=== PATIENT | female | born 1940 | race Caucasian/White ===

== ENCOUNTER → 2017-04-27 | Outpatient (CLI) | payer MEDICARE, OTHER ==
[~2017-04-27] MED LIST: ACIP20TA19 PO; ADVA250A INH; ASPI81 PO; B-1210005 PO; CALC-197 PO; CARD120T4 PO; COZA100T PO; DOCU100T9 PO; MAGN400C2 PO; META800 PO; REST0.05 OU; TAB-TAB PO; WAL-10TA2 PO; ZAFI20TA OR
--- NOTE | 2017-04-29 10:15 | RSPPFT ---
DATE OF PROCEDURE: 04/27/17 COMMENTS: VOLUMES DYNAMIC: FVC and FEV1 low normal. STATIC: TLC, RV and FRC normal. FLOWS: FEV1%l mildly reduced; FEF 25-75 moderately reduced. DIFFUSION: Normal. FLOW VOLUME LOOP: Mild terminal airflow obstruction. IMPRESSION: Terminal airflow obstruction with no significant change post-bronchodilator and no hyperinflation. Airways resistance is increased. Diffusion is normal.
== END ==
LOC: HRSP 07:17
PROVIDERS: ATTEND Internal Medicine
DX: J45.909 Unspecified asthma, uncomplicated (principal); R06.02 Shortness of breath
CPT/HCPCS: 94060; 94620; 94726; 94729; 95012

== ENCOUNTER 2017-06-23 18:36 | Inpatient (IN) | payer MEDICARE, OTHER ==
[~2017-06-23] VITALS: Ht 162.6 cm; Wt 72.0 kg
[2017-06-23 18:59] VITALS: BP 165/77; PULSE 91; RESP 18; TEMP 98.2; O2SAT 96
[2017-06-23] MEDS ORDERED: SODIUM CHLORIDE 0.9% FLUSH 10 ML FLUSH IVF PRN (19:00)
[2017-06-23] MEDS ORDERED: MORPHINE SULFATE 4 MG/ML INJ IV ONE (19:00)
--- NOTE | 2017-06-23 19:25 | PD ---
HPI Chief Complaint: Fall Time Seen by Provider: 18:57 Travel History International Travel<30 days: No Contact w/Intl Traveler<30days: No Traveled to known affect area: No History of Present Illness HPI 77-year-old female was brought to the emergency room by EMS on a board. Patient was going to get her mail when she tripped and fell and landed on the left side of her body. She was complaining of left shoulder and left hip pain. En route she also complained of her neck pain. She never lost consciousness and no head injury as per her. Patient takes 1 baby aspirin every day. She has been unable to straighten her left hip due to the pain mostly. She is awake and answering questions appropriately. She received 6 mg of morphine en route by EMS. FORMERLY [facility] Past Medical History Narrative Medical List of her past medical, surgical, social and family history was reviewed from the nursing note. Arthritis: Yes Asthma: Yes Autoimmune Disease: No Blood Disorders: No Heart Rhythm Problems: Yes Cancer: No High Cholesterol: No Chest Pain: No Congestive Heart Failure: No COPD: Yes Cerebrovascular Accident: Yes Diabetes: No Diminished Hearing: No Endocrine: Yes GERD: No Glaucoma: No Genitourinary: No Headaches: Yes Hepatitis: Yes Hiatal Hernia: No Hypertension: Yes Immune Disorder: No Kidney Stones: No Musculoskeletal: Yes Neurologic: Yes Psychiatric: No Myocardial Infarction: No Renal Failure: No Seizures: No Sleep Apnea: No Thyroid Disease: Yes Ulcer: Yes Past Surgical History Abdominal Surgery: Yes (ARACELIS-1975, TONSILS & ADNOIDS - 1949, APPENDECTOMY - 1953) AICD: No Appendectomy: Yes Cholecystectomy: Yes Endocrine Surgery: Yes Genitourinary Surgery: No Gynecologic Surgery: Yes (CYSTOCELE SURGERY) Hysterectomy: Yes Pacemaker: No Tonsillectomy: Yes Other Surgery: Yes (SINUS SURGERY 1988 AND 1990) Social History Alcohol Use: No Tobacco Use: No Substance Use: No Allergies-Medications (Allergen,Severity, Reaction): Coded Allergies: Sulfa (Sulfonamide Antibiotics) (Unverified Allergy, Severe, HIVES, ) celecoxib (Unverified Allergy, Severe, Rash, 05/26/17) naproxen (Unverified Allergy, Severe, Tachycardia, 05/26/17) amoxicillin (Unverified Allergy, Mild, Rash, 05/26/17) clavulanic acid (Unverified Allergy, Mild, Rash, 06/23/17) flunisolide (Unverified Allergy, Mild, Hallucinations, 06/23/17) hydrochlorothiazide (Unverified Allergy, Mild, Rash, 06/23/17) ibuprofen (Unverified Allergy, Mild, Tachycardia, 06/23/17) lisinopril (Unverified Allergy, Mild, Edema, 06/23/17) rofecoxib (Unverified Allergy, Mild, Tachycardia, 06/23/17) tramadol (Unverified Allergy, Mild, Hallucinations, 06/23/17) NSAIDS (Non-Steroidal Anti-Inflamma (Verified Allergy, Unknown, GI, ) metoprolol (Verified Allergy, Unknown, UNKNOWN, 06/23/17) midazolam (Verified Allergy, Unknown, 06/23/17) codeine (Unverified Adverse Reaction, Mild, NAUSEA/VOMITING, 06/23/17) Uncoded Allergies: ARTHROTEC (Allergy, Severe, Rash, 11/05/12) NASALIDE (Allergy, Unknown, 06/23/17) Comments List of allergies reviewed from the nursing note. Reported Meds & Prescriptions Reported Meds & Active Scripts Active Reported Magnesium Oxide 400 Mg Tab 400 Mg PO DIRECTED Aciphex (Rabeprazole Sodium) 20 Mg Tab 20 Mg PO DAILY Diltiazem (Diltiazem HCl) 120 Mg Tab 120 Mg PO DAILY Losartan (Losartan Potassium) 50 Mg Tab 50 Mg PO BID Aspirin EC (Aspirin) 81 Mg Tabdr 81 Mg PO DAILY Narrative Medication List of her home medications reviewed from the nursing note. Review of Systems Except as stated in HPI: all other systems reviewed are Neg Physical Exam Narrative GENERAL: Awake, alert, elderly, moderate distress SKIN: Focused skin assessment warm/dry. HEAD: Atraumatic. Normocephalic. EYES: Pupils equal and round. No scleral icterus. No injection or drainage. ENT: No nasal bleeding or discharge. Mucous membranes pink and moist. NECK: Trachea midline. No JVD. CARDIOVASCULAR: Regular rate and rhythm. No murmur appreciated. RESPIRATORY: No accessory muscle use. Clear to auscultation. Breath sounds equal bilaterally. GASTROINTESTINAL: Abdomen soft, non-tender, nondistended. Hepatic and splenic margins not palpable. MUSCULOSKELETAL: Left hip is internally rotated, flexed and decreased range of motion due to the pain. Left shoulder is deformed and decreased range of motion due to the pain. No clubbing. No cyanosis. No edema. Distal neurovascular chills and tach. NEUROLOGICAL: Awake and alert. No obvious cranial nerve deficits. Motor grossly within normal limits. Normal speech. PSYCHIATRIC: Appropriate mood and affect; insight and judgment normal. Data Data Orders Orders Basic Metabolic Panel (Bmp) (06/23/17 18:57) Complete Blood Count With Diff (06/23/17 18:57) Prothrombin Time / Inr (Pt) (06/23/17 18:57) Act Partial Throm Time (Ptt) (06/23/17 18:57) Type And Screen (06/23/17 18:57) Chest, Single Ap (06/23/17 18:57) Ct Brain W/O Iv Contrast(Rout) (06/23/17 18:57) Ct Cerv Spine W/O Contrast (06/23/17 18:57) Iv Access Insert/Monitor (06/23/17 18:57) Ecg Monitoring (06/23/17 18:57) Oximetry (06/23/17 18:57) Oxygen Administration (06/23/17 18:57) Morphine Inj (Morphine Inj) (06/23/17 19:00) Sodium Chloride 0.9% Flush (Ns Flush) (06/23/17 19:00) Shoulder, Complete (>2vws) (06/23/17 ) Elbow, Complete (4 Vws) (06/23/17 ) Hip, Uni(Ap&Lat) W Ap Pelvis (06/23/17 ) Urinary Catheter Insert/Apply (06/23/17 19:00) Wrist, Complete ([id number]) (06/23/17 ) Hand, Complete ([id number]) (06/23/17 ) Splint Or Brace Apply/Monitor (06/23/17 22:06) Morphine Inj (Morphine Inj) (06/23/17 22:45) Admit Order (Ed Use Only) (06/23/17 ) Labs Laboratory Tests Test 06/23/17 19:18 White Blood Count 12.6 TH/MM3 Red Blood Count 4.51 MIL/MM3 Hemoglobin 13.1 GM/DL Hematocrit 39.2 % Mean Corpuscular Volume 87.0 FL Mean Corpuscular Hemoglobin 29.1 PG Mean Corpuscular Hemoglobin Concent 33.5 % Red Cell Distribution Width 13.5 % Platelet Count 314 TH/MM3 Mean Platelet Volume 7.1 FL Neutrophils (%) (Auto) 77.7 % Lymphocytes (%) (Auto) 14.1 % Monocytes (%) (Auto) 5.1 % Eosinophils (%) (Auto) 2.9 % Basophils (%) (Auto) 0.2 % Neutrophils # (Auto) 9.8 TH/MM3 Lymphocytes # (Auto) 1.8 TH/MM3 Monocytes # (Auto) 0.6 TH/MM3 Eosinophils # (Auto) 0.4 TH/MM3 Basophils # (Auto) 0.0 TH/MM3 CBC Comment DIFF FINAL Differential Comment Prothrombin Time 10.9 SEC Prothromb Time International Ratio 1.0 RATIO Activated Partial Thromboplast Time 28.0 SEC Blood Urea Nitrogen 16 MG/DL Creatinine 0.52 MG/DL Random Glucose 97 MG/DL Calcium Level 8.8 MG/DL Sodium Level 133 MEQ/L Potassium Level 3.4 MEQ/L Chloride Level 99 MEQ/L Carbon Dioxide Level 24.6 MEQ/L Anion Gap 9 MEQ/L Estimat Glomerular Filtration Rate 114 ML/MIN [facility] Medical Decision Making Medical Screen Exam Complete: Yes Emergency Medical Condition: Yes Medical Record Reviewed: Yes Differential Diagnosis Shoulder fracture, shoulder dislocation, hip fracture, hip dislocation, cervical fracture Narrative Course 7:24 PM patient was given another dose of IV morphine. X-ray of the shoulder and hip was ordered. CT scan of the head and neck was ordered. Case was signed over to the oncoming ER physician. Procedures EKG Prior to Arrival: No Scripts Sennosides-Docusate Sodium (Azul-Colace) 8.6-50 Mg Tab 2 TAB PO BID for Constipation, #60 TAB 0 Refills Prov: Netta Parikh MD 06/25/17 Morphine ER (Morphine ER) 15 Mg Tab 15 MG PO DAILY for Pain Management, #15 TAB 0 Refills Prov: Netta Parikh MD 06/25/17 Doug Grullon MD Jun 23, 2017 19:25
--- NOTE | 2017-06-23 20:20 | RADRPT ---
EXAM DATE/TIME: 06/23/2017 19:51 [facility] COMPARISON: No previous studies available for comparison. INDICATIONS : Pain post fall. MEDICAL HISTORY : None. SURGICAL HISTORY : None. ENCOUNTER: Initial ACUITY: 1 day PAIN SCORE: 2/10 LOCATION: Left upper chest FINDINGS: A single view of the chest demonstrates the lungs to be symmetrically aerated without evidence of mas s, infiltrate or effusion. The cardiomediastinal contours are unremarkable. Osseous structures are intact. CONCLUSION: No evidence of acute cardiopulmonary disease. Calvin Nash MD on June 23, 2017 at 20:18 Board Certified Radiologist. This report was verified electronically.
--- NOTE | 2017-06-23 20:21 | RADRPT ---
EXAM DATE/TIME: 06/23/2017 19:51 [facility] COMPARISON: No previous studies available for comparison. INDICATIONS : Left hip pain post fall. MEDICAL HISTORY : None. SURGICAL HISTORY : None. ENCOUNTER: Initial ACUITY: 1 day PAIN SCORE: 9/10 LOCATION: Left hip. FINDINGS: Mildly displaced fracture seen of the left superior pubic ramus. It may be acute. I don't see any oth er fractures. No subluxation of either hip. CONCLUSION: Mildly displaced left superior pubic ramus fracture. Calvin Nash MD on June 23, 2017 at 20:19 Board Certified Radiologist. This report was verified electronically.
--- NOTE | 2017-06-23 20:27 | RADRPT ---
EXAM DATE/TIME: 06/23/2017 19:56 [facility] COMPARISON: No previous studies available for comparison. INDICATIONS : Left shoulder pain post fall. MEDICAL HISTORY : None. SURGICAL HISTORY : None. ENCOUNTER: Initial ACUITY: 1 day PAIN SCORE: 8/10 LOCATION: Left shoulder. FINDINGS: No fracture or subluxation seen of the left shoulder. There is mild to moderate acromioclavicular and glenohumeral joint osteoarthritis. Chronic impingement type changes are seen of the greater tuberosi ty of the humeral head. CONCLUSION: Chronic findings. No fracture or subluxation of the left shoulder. Calvin Nash MD on June 23, 2017 at 20:25 Board Certified Radiologist. This report was verified electronically.
--- NOTE | 2017-06-23 20:30 | RADRPT ---
EXAM DATE/TIME: 06/23/2017 20:00 [facility] COMPARISON: No previous studies available for comparison. INDICATIONS : Left elbow pain post fall. MEDICAL HISTORY : None. SURGICAL HISTORY : None. ENCOUNTER: Initial ACUITY: 1 day PAIN SCORE: 4/10 LOCATION: Left elbow. FINDINGS: Multiple view examination of the left elbow demonstrates no soft tissue swelling, joint effusion, or fracture. The osseous structures are in normal alignment. Bony mineralization is normal. CONCLUSION: No fracture, subluxation or joint effusion of the left elbow. Calvin Nash MD on June 23, 2017 at 20:28 Board Certified Radiologist. This report was verified electronically.
--- NOTE | 2017-06-23 20:31 | RADRPT ---
EXAM DATE/TIME: 06/23/2017 20:06 [facility] COMPARISON: No previous studies available for comparison. INDICATIONS : Trauma, fall and hit back of head. RADIATION DOSE: 34.54 CTDIvol (mGy) MEDICAL HISTORY : Hypertension. Chronic obstructive pulmonary disease. Asthma. SURGICAL HISTORY : Hysterectomy. ENCOUNTER: Initial ACUITY: 1 day PAIN SCALE: 6/10 LOCATION: cranial TECHNIQUE: Multiple contiguous axial images were obtained of the head. Using automated exposure control and adj ustment of the mA and/or kV according to patient size, radiation dose was kept as low as reasonably a chievable to obtain optimal diagnostic quality images. DICOM format image data is available electro nically for review and comparison. FINDINGS: CEREBRUM: The ventricles are normal for age. No evidence of midline shift, mass lesion, hemorrhage or acute in farction. No extra-axial fluid collections are seen. POSTERIOR FOSSA: The cerebellum and brainstem are intact. The 4th ventricle is midline. The cerebellopontine angle i s unremarkable. EXTRACRANIAL: Mucoperiosteal thickening seen of the visualized ethmoid and maxillary air cells. There appears to be en previous bilateral nasal antral window formation. SKULL: The calvaria is intact. No evidence of skull fracture. CONCLUSION: No bleed or other acute intracranial abnormality. Chronic sinusitis. Apparent previous sinus surgery. Calvin Nash MD on June 23, 2017 at 20:29 Board Certified Radiologist. This report was verified electronically.
[2017-06-23 20:32] LABS: AUTOMATED NEUTROPHIL # 9.8 TH/MM3 (1.8-7.7); BASOPHIL % 0.2 % (0.0-2.0); EOSINOPHIL # 0.4 TH/MM3 (0-0.4); EOSINOPHIL % 2.9 % (0.0-4.0); HEMATOCRIT 39.2 % (35.0-46.0); HEMO FLAGS DIFF FINAL; LYMPH % 14.1 % (9.0-44.0); LYMPHOCYTE # 1.8 TH/MM3 (1.0-4.8); MEAN CORPUSCULAR HEMOGLOBIN 29.1 PG (27.0-34.0); MEAN CORPUSCULAR HGB CONC 33.5 % (32.0-36.0); MONO % 5.1 % (0.0-8.0); NEUT % 77.7 % (16.0-70.0); PLATELET COUNT 314 TH/MM3 (150-450); RED BLOOD COUNT 4.51 MIL/MM3 (4.00-5.30); RED CELL DISTRIBUTION WIDTH 13.5 % (11.6-17.2); WHITE BLOOD COUNT 12.6 TH/MM3 (4.0-11.0)
[2017-06-23 20:42] LABS: PROTHROMBIN TIME - PATIENT 10.9 SEC (9.8-11.6)
--- NOTE | 2017-06-23 20:42 | RADRPT ---
EXAM DATE/TIME: 06/23/2017 20:06 [facility] COMPARISON: No previous studies available for comparison. INDICATIONS : Trauma, fall and hit back of head. RADIATION DOSE: 20.58 CTDIvol (mGy) MEDICAL HISTORY : Hypertension. Chronic obstructive pulmonary disease. Asthma. SURGICAL HISTORY : Hysterectomy. ENCOUNTER: Initial ACUITY: 1 day PAIN SCALE: 2/10 LOCATION: neck TECHNIQUE: Volumetric scanning of the cervical spine was performed. Multiplanar reconstructions in the sagittal, coronal and oblique axial planes were performed. Using automated exposure control and adjustment o f the mA and/or kV according to patient size, radiation dose was kept as low as reasonably achievable to obtain optimal diagnostic quality images. DICOM format image data is available electronically f or review and comparison. FINDINGS: No fracture or acute-appearing malalignment seen in the cervical spine. There are few millimeters of degenerative appearing anterolisthesis at C3/C4. Mild to moderate disc s pace narrowing seen at this level. There is moderate to severe disc space narrowing with uncovertebra l and facet osteoarthritis at C4/C5, C5/C6 and C6/C7. No acute disc herniation demonstrated. Perivertebral soft tissues are within normal limits. CONCLUSION: Intact cervical spine. Multilevel degenerative changes as above. Calvin Nash MD on June 23, 2017 at 20:40 Board Certified Radiologist. This report was verified electronically.
[2017-06-23 20:49] LABS: BICARBONATE 24.6 MEQ/L (21.0-32.0); POTASSIUM 3.4 MEQ/L (3.5-5.1)
[2017-06-23] MEDS ORDERED: DILT120T PO (21:52)
[2017-06-23] MEDS ORDERED: ASPI81TA11 PO (21:52)
[2017-06-23] MEDS ORDERED: ACIP20TA6 PO (21:52)
[2017-06-23] MEDS ORDERED: LOSA50TA PO (21:52)
[2017-06-23] MEDS ORDERED: MAGN400T2 PO (21:56)
--- NOTE | 2017-06-23 22:03 | RADRPT ---
EXAM DATE/TIME: 06/23/2017 21:40 [facility] COMPARISON: No previous studies available for comparison. INDICATIONS : Left wrist pain after falling today. MEDICAL HISTORY : Hypertension. Asthma. SURGICAL HISTORY : None. ENCOUNTER: Initial ACUITY: 1 day PAIN SCORE: 10/10 LOCATION: Left entire wrist. FINDINGS: Bones of the left wrist are intact and normally aligned. There is mild to moderate triscaphe and firs t carpometacarpal osteoarthritis. Radiographic appearance of the soft tissues within normal limits. CONCLUSION: No fracture or subluxation of the left wrist. [id number] radial sided degenerative changes. Calvin Nash MD on June 23, 2017 at 22:01 Board Certified Radiologist. This report was verified electronically.
--- NOTE | 2017-06-23 22:04 | RADRPT ---
EXAM DATE/TIME: 06/23/2017 21:47 [facility] COMPARISON: No previous studies available for comparison. INDICATIONS : Left hand pain after falling today. MEDICAL HISTORY : Hypertension. Asthma. SURGICAL HISTORY : None. ENCOUNTER: Initial ACUITY: 1 day PAIN SCORE: 10/10 LOCATION: Left entire wrist. FINDINGS: Three view examination of the left hand demonstrates no soft tissue swelling, dislocation, or fractur e. The carpal bones appear intact. The interphalangeal and metacarpophalangeal joints are intact. Bony mineralization is normal. CONCLUSION: Intact left hand. Calvin Nash MD on June 23, 2017 at 22:02 Board Certified Radiologist. This report was verified electronically.
--- NOTE | 2017-06-23 22:35 | PD ---
Physical Exam Narrative Patient signed out to me by Dr. Grullon. Please see her documentation for complete details. Briefly, patient is a 77-year-old female comes in after a trip and fall. She fell on her left side. She is complaining of pain to her left wrist and her left hip. Exam shows tenderness to the left scaphoid as well as the left side of the pelvis. Pulses are intact. Data Data Last Documented VS Vital Signs Date Time Temp Pulse Resp B/P (MAP) Pulse Ox O2 Delivery O2 Flow Rate FiO2 06/23/17 19:30 100 Room Air 06/23/17 18:59 98.2 91 18 165/77 (106) Orders Orders Basic Metabolic Panel (Bmp) (06/23/17 18:57) Complete Blood Count With Diff (06/23/17 18:57) Prothrombin Time / Inr (Pt) (06/23/17 18:57) Act Partial Throm Time (Ptt) (06/23/17 18:57) Type And Screen (06/23/17 18:57) Chest, Single Ap (06/23/17 18:57) Ct Brain W/O Iv Contrast(Rout) (06/23/17 18:57) Ct Cerv Spine W/O Contrast (06/23/17 18:57) Iv Access Insert/Monitor (06/23/17 18:57) Ecg Monitoring (06/23/17 18:57) Oximetry (06/23/17 18:57) Oxygen Administration (06/23/17 18:57) Morphine Inj (Morphine Inj) (06/23/17 19:00) Sodium Chloride 0.9% Flush (Ns Flush) (06/23/17 19:00) Shoulder, Complete (>2vws) (06/23/17 ) Elbow, Complete (4 Vws) (06/23/17 ) Hip, Uni(Ap&Lat) W Ap Pelvis (06/23/17 ) Urinary Catheter Insert/Apply (06/23/17 19:00) Wrist, Complete ([id number]) (06/23/17 ) Hand, Complete ([id number]) (06/23/17 ) Splint Or Brace Apply/Monitor (06/23/17 22:06) Labs Laboratory Tests Test 06/23/17 19:18 White Blood Count 12.6 TH/MM3 Red Blood Count 4.51 MIL/MM3 Hemoglobin 13.1 GM/DL Hematocrit 39.2 % Mean Corpuscular Volume 87.0 FL Mean Corpuscular Hemoglobin 29.1 PG Mean Corpuscular Hemoglobin Concent 33.5 % Red Cell Distribution Width 13.5 % Platelet Count 314 TH/MM3 Mean Platelet Volume 7.1 FL Neutrophils (%) (Auto) 77.7 % Lymphocytes (%) (Auto) 14.1 % Monocytes (%) (Auto) 5.1 % Eosinophils (%) (Auto) 2.9 % Basophils (%) (Auto) 0.2 % Neutrophils # (Auto) 9.8 TH/MM3 Lymphocytes # (Auto) 1.8 TH/MM3 Monocytes # (Auto) 0.6 TH/MM3 Eosinophils # (Auto) 0.4 TH/MM3 Basophils # (Auto) 0.0 TH/MM3 CBC Comment DIFF FINAL Differential Comment Prothrombin Time 10.9 SEC Prothromb Time International Ratio 1.0 RATIO Activated Partial Thromboplast Time 28.0 SEC Blood Urea Nitrogen 16 MG/DL Creatinine 0.52 MG/DL Random Glucose 97 MG/DL Calcium Level 8.8 MG/DL Sodium Level 133 MEQ/L Potassium Level 3.4 MEQ/L Chloride Level 99 MEQ/L Carbon Dioxide Level 24.6 MEQ/L Anion Gap 9 MEQ/L Estimat Glomerular Filtration Rate 114 ML/MIN [facility] Supervised Visit with LEONARDO: No Narrative Course X-ray of the pelvis shows a superior rami fracture. Patient is having too much pain to try and walk. CT head and C-spine show no acute abnormalities. All other x-ray show no acute abnormalities. Patient placed in Velcro wrist splint due to snuffbox tenderness. She is advised to have a repeat x-ray in 1 week. I spoke with Dr. Ibarra of orthopedics. He suggests weightbearing as tolerated. She will need pain control. He will see her in the morning. Patient given another dose of morphine. She attempted to walk, but is unable to get up. She'll be placed in observation for further management. Diagnosis Primary Impression: Pelvic fracture Qualified Codes: S32.512A - Fracture of superior rim of left pubis, initial encounter for closed fracture Admitting Information Admitting Physician Requests: Observation Condition: Stable Susi Bragg MD Jun 23, 2017 22:35
[2017-06-23] MEDS ORDERED: MORPHINE SULFATE 4 MG/ML INJ IV PUSH ONE (22:45)
[2017-06-23] MEDS ORDERED: SODIUM CHLORIDE 0.9% FLUSH 10 ML FLUSH IV FLUSH PRN (23:00)
[2017-06-23] MEDS ORDERED: NALOXONE HCL 0.4 MG/ML AMP IV PRN (23:00)
[2017-06-23] MEDS ORDERED: MORPHINE SULFATE 2 MG/ML INJ IV PUSH PRN (23:00)
[2017-06-23 23:15] VITALS: BP 104/54; PULSE 70; RESP 19; O2SAT 97
[2017-06-23 23:50] VITALS: BP 129/59; PULSE 73; RESP 18; O2SAT 96
[2017-06-24] VITALS (8 sets, daily range): BP systolic 132–175; BP diastolic 60–82; PULSE 67–77; RESP 16–18; TEMP 97.1–98.1; O2SAT 94–97
--- NOTE | 2017-06-24 08:56 | HHI.HP ---
[facility] Primary Care Physician Kimberly Arroyo MD Admission Diagnosis Pelvic fracture Diagnoses: (1) Pelvic fracture Chief Complaint: Fall, left hip and left hand/wrist pain Travel History International Travel<30 Days: No Contact w/Intl Traveler <30 Da: No Traveled to Known Affected Are: No History of Present Illness Written by Susi Costa, acting as scribe for Dr. Parikh on 06/24/17 at 08:46. Ms. Velazquez is a 77-year-old female with a known medical history of hypertension and COPD who presented to the ED status post fall at home. Patient states she was walking outside to get her mail when she slipped and lost her balance, falling on her left side. At the time patient states she "heard a crack in her hip". Patient complains of left hand/wrist pain as well as left hip pain. Denies hitting her head or loosing consciousness. She is a relatively healthy patient. Denies any recent illness including fever, chills, headache, dizziness, diplopia, cough, shortness of breath, abdominal pain, nausea, vomiting, diarrhea or dysuria. At the time of exam patient is awake, alert and oriented, following all commands. Continued complaint of left wrist/hand pain. Denies any numbness, tingling or paraesthesia in al extremities. Afebrile. VSS. Review of Systems Musculoskeletal: COMPLAINS OF: Joint pain (left wrist/hand, left hip pain) Except as stated in HPI: all other systems reviewed are Neg Past Family Social History Past Medical History Hypertension COPD Asthma GERD Past Surgical History Cholecystectomy Appendectomy Hysterectomy Reported Medications Reported Meds & Active Scripts Active Reported Magnesium Oxide 400 Mg Tab 400 Mg PO DIRECTED Aciphex (Rabeprazole Sodium) 20 Mg Tab 20 Mg PO DAILY Diltiazem (Diltiazem HCl) 120 Mg Tab 120 Mg PO DAILY Losartan (Losartan Potassium) 50 Mg Tab 50 Mg PO BID Aspirin EC (Aspirin) 81 Mg Tabdr 81 Mg PO DAILY Allergies: Coded Allergies: Sulfa (Sulfonamide Antibiotics) (Unverified Allergy, Severe, HIVES, ) celecoxib (Unverified Allergy, Severe, Rash, 05/26/17) naproxen (Unverified Allergy, Severe, Tachycardia, 05/26/17) amoxicillin (Unverified Allergy, Mild, Rash, 05/26/17) clavulanic acid (Unverified Allergy, Mild, Rash, 06/23/17) flunisolide (Unverified Allergy, Mild, Hallucinations, 06/23/17) hydrochlorothiazide (Unverified Allergy, Mild, Rash, 06/23/17) ibuprofen (Unverified Allergy, Mild, Tachycardia, 06/23/17) lisinopril (Unverified Allergy, Mild, Edema, 06/23/17) rofecoxib (Unverified Allergy, Mild, Tachycardia, 06/23/17) tramadol (Unverified Allergy, Mild, Hallucinations, 06/23/17) NSAIDS (Non-Steroidal Anti-Inflamma (Verified Allergy, Unknown, GI, ) metoprolol (Verified Allergy, Unknown, UNKNOWN, 06/23/17) midazolam (Verified Allergy, Unknown, 06/23/17) codeine (Unverified Adverse Reaction, Mild, NAUSEA/VOMITING, 06/23/17) Uncoded Allergies: ARTHROTEC (Allergy, Severe, Rash, 11/05/12) NASALIDE (Allergy, Unknown, 06/23/17) Active Ordered Medications Current Medications Medications (Trade) Dose Ordered Sig/Ingrid Route Start Time Stop Time Status Last Admin (NS Flush) 2 ml UNSCH PRN IV FLUSH 06/23/17 23:00 06/23/17 23:53 (NS Flush) 2 ml BID IV FLUSH 06/24/17 09:00 06/24/17 09:00 (Narcan Inj) 0.4 mg UNSCH PRN IV 06/23/17 23:00 (Morphine Inj) 2 mg Q3H PRN IV PUSH 06/24/17 05:15 06/24/17 16:40 (Ecotrin Ec) 81 mg DAILY PO 06/25/17 09:00 (Cozaar) 50 mg BID PO 06/24/17 21:00 (Mag-Ox) 400 mg DAILY PO 06/25/17 09:00 (Protonix) 20 mg DAILY PO 06/25/17 09:00 (Cardizem Cd) 120 mg DAILY PO 06/25/17 09:00 (Triangle 5-325 Mg) 1 tab Q4H PRN PO 06/24/17 16:30 (Triangle 10-325 Mg) 1 tab Q4H PRN PO 06/24/17 16:30 (Narcan Inj) 0.4 mg UNSCH PRN IV PUSH 06/24/17 16:30 Family History Maternal medical history significant for cardiovascular disease and colon cancer. Paternal medical history significant for lung cancer. Brother's medical history significant for colon cancer. Social History Denies any current tobacco use, alcohol use or illicit drug use. Physical Exam Vital Signs Vital Signs Date Time Temp Pulse Resp B/P (MAP) Pulse Ox O2 Delivery O2 Flow Rate FiO2 06/24/17 01:59 97.1 74 16 154/72 (99) 97 06/24/17 01:29 72 16 140/82 (101) 99 06/23/17 23:50 73 18 129/59 (82) 96 Room Air 06/23/17 23:15 70 19 104/54 (71) 97 Room Air 06/23/17 19:30 100 Room Air 06/23/17 19:10 100 Room Air 06/23/17 18:59 98.2 91 18 165/77 (106) 96 Physical Exam GENERAL: This is a well-nourished, well-developed patient, in no apparent distress. SKIN: No rashes, ecchymoses or lesions. Warm and dry. HEENT: Atraumatic. Normocephalic. Pupils equal round and reactive. Extraocular motions intact. No scleral icterus. No injection or drainage. Nose without bleeding. Airway patent. NECK: Trachea midline. No JVD. Supple. CARDIOVASCULAR: Regular rate and rhythm without murmurs, gallops, or rubs. RESPIRATORY: Clear to auscultation. Breath sounds equal bilaterally. No wheezes , rales, or rhonchi. GASTROINTESTINAL: Abdomen soft, non-tender, nondistended. No guarding. MUSCULOSKELETAL: Extremities without clubbing, cyanosis, or edema. No joint tenderness, effusion, or edema noted. Left knee abrasion. NEUROLOGICAL: Awake and alert. Cranial nerves II through XII intact. Motor and sensory grossly within normal limits. Five out of 5 muscle strength in all muscle groups. Normal speech. Laboratory Laboratory Tests Test 06/23/17 19:18 White Blood Count 12.6 Red Blood Count 4.51 Hemoglobin 13.1 Hematocrit 39.2 Mean Corpuscular Volume 87.0 Mean Corpuscular Hemoglobin 29.1 Mean Corpuscular Hemoglobin Concent 33.5 Red Cell Distribution Width 13.5 Platelet Count 314 Mean Platelet Volume 7.1 Neutrophils (%) (Auto) 77.7 Lymphocytes (%) (Auto) 14.1 Monocytes (%) (Auto) 5.1 Eosinophils (%) (Auto) 2.9 Basophils (%) (Auto) 0.2 Neutrophils # (Auto) 9.8 Lymphocytes # (Auto) 1.8 Monocytes # (Auto) 0.6 Eosinophils # (Auto) 0.4 Basophils # (Auto) 0.0 CBC Comment DIFF FINAL Differential Comment Prothrombin Time 10.9 Prothromb Time International Ratio 1.0 Activated Partial Thromboplast Time 28.0 Blood Urea Nitrogen 16 Creatinine 0.52 Random Glucose 97 Calcium Level 8.8 Sodium Level 133 Potassium Level 3.4 Chloride Level 99 Carbon Dioxide Level 24.6 Anion Gap 9 Estimat Glomerular Filtration Rate 114 Result Diagram: 06/23/17191706/23/171917 Imaging Last Impressions Wrist MRI 06/24/17 0000 Signed Impressions: Service Date/Time: Saturday, June 24, 2017 10:30 - CONCLUSION: Hairline fracture through the scaphoid waist with a small amount of surrounding bony edema. Mild arthritis of the first carpometacarpal joint with subchondral cystic change within the first metacarpal base Grant Ramesh MD Head CT 06/23/171856 Signed Impressions: Service Date/Time: Friday, June 23, 2017 20:06 - CONCLUSION: No bleed or other acute intracranial abnormality. Chronic sinusitis. Apparent previous sinus surgery. Calvin Nash MD Chest X-Ray 06/23/171856 Signed Impressions: Service Date/Time: Friday, June 23, 2017 19:51 - CONCLUSION: No evidence of acute cardiopulmonary disease. Calvin Nash MD Cervical Spine CT 06/23/171856 Signed Impressions: Service Date/Time: Friday, June 23, 2017 20:06 - CONCLUSION: Intact cervical spine. Multilevel degenerative changes as above. Calvin Nash MD Wrist X-Ray 9/12/17 0000 Signed Impressions: Service Date/Time: Friday, June 23, 2017 21:40 - CONCLUSION: No fracture or subluxation of the left wrist. [id number] radial sided degenerative changes. Calvin Nash MD Shoulder X-Ray 06/23/17 Signed Impressions: Service Date/Time: Friday, June 23, 2017 19:56 - CONCLUSION: Chronic findings. No fracture or subluxation of the left shoulder. Calvin Nash MD Hip and Pelvis X-Ray 06/23/17 Signed Impressions: Service Date/Time: Friday, June 23, 2017 19:51 - CONCLUSION: Mildly displaced left superior pubic ramus fracture. Calvin Nash MD Hand X-Ray 06/23/17 Signed Impressions: Service Date/Time: Friday, June 23, 2017 21:47 - CONCLUSION: Intact left hand. Calvin Nash MD Elbow X-Ray 06/23/17 Signed Impressions: Service Date/Time: Friday, June 23, 2017 20:00 - CONCLUSION: No fracture, subluxation or joint effusion of the left elbow. Calvin Nash MD Capthien VTE Risk Assessment Caprini VTE Risk Assessment: No/Low Risk (score <= 1) Caprini Risk Assessment Model Point Value = 1 Point Value = 2 Point Value = 3 Point Value = 5 Age 41-60 Minor surgery BMI > 25 kg/m2 Swollen legs Varicose veins or History of unexplained or recurrent spontaneous Oral contraceptives or hormone replacement Sepsis (< 1 month) Serious lung disease, including pneumonia (< 1 month) Abnormal pulmonary function Acute myocardial infarction Congestive heart failure (< 1 month) History of inflammatory bowel disease Medical patient at bed rest Age 61-74 Arthroscopic surgery Major open surgery (> 45 min) Laparoscopic surgery (> 45 min) Malignancy Confined to bed (> 72 hours) Immobilizing plaster cast Central venous access Age >= 75 History of VTE Family history of VTE Factor V Leiden Prothrombin [id number] Lupus anticoagulant Anticardiolipin antibodies Elevated serum homocysteine Heparin-induced thrombocytopenia Other congenital or acquired thrombophilia Stroke (< 1 month) Elective arthroplasty Hip, pelvis, or leg fracture Acute spinal cord injury (< 1 month) Prophylaxis Regimen Total Risk Factor Score Risk Level Prophylaxis Regimen 0-1 Low Early ambulation 2 Moderate Order ONE of the following: *Sequential Compression Device (SCD) *Heparin 5000 units SQ BID 3-4 Higher Order ONE of the following medications: *Heparin 5000 units SQ TID *Enoxaparin/Lovenox 40 mg SQ daily (WT < 150 kg, CrCl > 30 mL/min) *Enoxaparin/Lovenox 30 mg SQ daily (WT < 150 kg, CrCl > 10-29 mL/min) *Enoxaparin/Lovenox 30 mg SQ BID (WT < 150 kg, CrCl > 30 mL/min) AND/OR *Sequential Compression Device (SCD) 5 or more Highest Order ONE of the following medications: *Heparin 5000 units SQ TID (Preferred with Epidurals) *Enoxaparin/Lovenox 40 mg SQ daily (WT < 150 kg, CrCl > 30 mL/min) *Enoxaparin/Lovenox 30 mg SQ daily (WT < 150 kg, CrCl > 10-29 mL/min) *Enoxaparin/Lovenox 30 mg SQ BID (WT < 150 kg, CrCl > 30 mL/min) AND *Sequential Compression Device (SCD) Assessment and Plan Assessment and Plan Ms. Velazquez is a 77-year-old female with a known medical history of hypertension and COPD who presented to the ED status post fall at home. Patient states she was walking outside to get her mail when she slipped and lost her balance, falling on her left side. Left superior pubic ramus fracture Left wrist/hand pain - Hip and pelvis x-ray reviewed showing mildly displaced left superior pubic ramus fracture. - Orthopedic surgeon consulted. Appreciate input. - Control pain, Morphine IV PRN per pain scale available. - Left wrist and hand x-ray reviewed showing no fracture, ortho ordered an MRI to look closer, continued complaint of pain in left hand/wrist. Follow. - Left shoulder x-ray, left elbow x-ray, chest x-ray and head CT all reviewed and unremarkable. Hypertension: Mildly elevated, could be pain related. Will restart home BP medications. Monitor BP closely. DVT Prophylaxis: SCDs. Chemical prophylaxis per ortho team. This note was transcribed by nicole MARTE . I, Dr. Netta Parikh personally performed the history, physical exam, and medical decision making; and confirmed the accuracy of the information in the transcribed note. Authenticated by Dr. Netta Parikh on 06/24/17 at 08:46. Physician Certification 2 Midnight Certification Type: Admission for Inpatient Services Order for Inpatient Services The services are ordered in accordance with Medicare regulations or non- Medicare payer requirements, as applicable. In the case of services not specified as inpatient-only, they are appropriately provided as inpatient services in accordance with the 2-midnight benchmark. Estimated LOS (days): 2 2 days is the estimated time the patient will need to remain in the hospital, assuming treatment plan goals are met and no additional complications. Post-Hospital Plan: Home Problem Qualifiers (1) Pelvic fracture: Qualified Codes: S32.512A - Fracture of superior rim of left pubis, initial encounter for closed fracture Susi Costa Jun 24, 2017 08:56 Netta Parikh MD Jun 24, 2017 09:05
[2017-06-24] MEDS: SODIUM CHLORIDE 0.9% FLUSH 10 ML FLUSH IV FLUSH SCH ×2 (09:00→21:03)
[2017-06-24 11:00] LABS: AUTOMATED NEUTROPHIL # 5.3 TH/MM3 (1.8-7.7); BASOPHIL % 0.4 % (0.0-2.0); EOSINOPHIL # 0.2 TH/MM3 (0-0.4); EOSINOPHIL % 2.3 % (0.0-4.0); HEMO FLAGS DIFF FINAL; LYMPH % 20.9 % (9.0-44.0); LYMPHOCYTE # 1.6 TH/MM3 (1.0-4.8); MEAN CELL VOLUME 88.4 FL (80.0-100.0); MONO % 8.5 % (0.0-8.0); NEUT % 67.9 % (16.0-70.0); PLATELET COUNT 283 TH/MM3 (150-450); RED BLOOD COUNT 4.41 MIL/MM3 (4.00-5.30); RED CELL DISTRIBUTION WIDTH 13.2 % (11.6-17.2); WHITE BLOOD COUNT 7.9 TH/MM3 (4.0-11.0)
[2017-06-24 11:11] LABS: BICARBONATE 25.1 MEQ/L (21.0-32.0)
[2017-06-24] MEDS ORDERED: ONDANSETRON HCL 4 MG/2 ML VIAL ONE (11:29)
--- NOTE | 2017-06-24 11:33 | RADRPT ---
EXAM DATE/TIME: 06/24/2017 10:30 [facility] COMPARISON: WRIST LEFT COMPLETE ([id number]), June 23, 2017, 21:40. INDICATIONS : Severe left wrist pain after fall. Fracture. MEDICAL HISTORY : Hypertension. Chronic obstructive pulmonary disease. SURGICAL HISTORY : Tonsillectomy. Hysterectomy. Appendectomy. Cholecystectomy. ENCOUNTER: Subsequent ACUITY: 2 day PAIN SCORE: 9/10 LOCATION: Left wrist. TECHNIQUE: Multiplanar multisequence MRI examination of the wrist was performed without contrast. FINDINGS: INTRISIC LIGAMENTS: The scapholunate and lunotriquetral ligaments are intact. TRIANGULAR FIBROCARTILAGE: The triangular fibrocartilage complex is intact. TENDONS: All of the visualized tendons are intact. MARROW/CARTILAGE: There is a hairline fracture through the scaphoid waist which is occult on x-ray. There is a bony jean-claude ma but what appears to be excellent alignment. No abnormal signal in the proximal pole. Mild arthrit is of the first carpometacarpal joint with subchondral cystic change within the first metacarpal base . OTHER: No evidence of joint effusion. Ulnar nerve and median nerve are intact. CONCLUSION: Hairline fracture through the scaphoid waist with a small amount of surrounding bony edema. Mild arth ritis of the first carpometacarpal joint with subchondral cystic change within the first metacarpal b ase Grant Ramesh MD on June 24, 2017 at 11:30 Board Certified Radiologist. This report was verified electronically.
--- NOTE | 2017-06-24 14:11 | MB ---
cc: MICHAEL KELLY M.D. DATE OF CONSULTATION: 06/24/2017 REASON FOR CONSULTATION: Left-sided pelvic fractures and multiple upper extremity contusions. HISTORY: The patient is a 77 year-old female who was brought to [facility] by EMS. The patient says she was going to get her mail. She tripped on a branch, tried to recover by juggling the mail and then ended up falling onto the left side. She noted immediate pain especially around the left wrist, although when she came to the hospital, she had multiple x-rays of the left upper extremity. She was placed into a wrist control splint, as the x-rays apparently were negative. The patient was found to have pelvic fractures on the left side, and she was admitted to the hospital. The patient denies having any previous problems with these areas. in the past. She has not described any new numbness or tingling. She has pain when she attempts ambulation. PAST MEDICAL HISTORY: Positive for: 1. Arthritis. 2. Asthma. 3. Heart rhythm problems. 4. CVA. 5. Endocrine problems. 6. Headache. 7. Hypertension. 8. Neurologic problems. PAST SURGICAL HISTORY: Positive for: 1. Cholecystectomy 2. Appendectomy 3. T&A 4. Cystocele surgery. 5. Hysterectomy 6. Sinus surgery. SOCIAL HISTORY The patient does not drink alcohol or smoke tobacco. ALLERGIES Multiple allergies. See the chart. MEDICATIONS See the chart. Note that she does take Aspirin. REVIEW OF SYSTEMS: A 12 point review of systems is negative except as noted in the history of present illness. FAMILY HISTORY: Noncontributory. PHYSICAL EXAMINATION: Vital signs: The temperature is 97.1, pulse is 74, respirations 16, blood pressure 154/72. GENERAL: She is awake, alert and oriented x3. She had normal affect, insight and judgment. She is in no acute distress. HEAD: Atraumatic. NECK: Supple. Oropharynx is moist. Extraocular muscles are intact. HEART: Regular rate and rhythm. LUNGS: Clear to auscultation bilaterally. ABDOMEN: Soft, non-tender, non-distended. BACK: No CVA tenderness. EXTREMITIES: Examination of the left upper extremity showed that she does not have any significant swelling or pain with motion about the shoulder or the elbow. Her left wrist does have at least mild diffuse swelling. She has tenderness at the joint line and also at the anatomic snuff box. She has loss of range of motion of a moderate degree. Her fingers have mild loss of range of motion with some weakness. She has brisk capillary refill about the fingers. Examination of the right upper extremity shows good active range of motion of the shoulder, elbow and wrist. Examination of the left lower extremity shows that she has a small abrasion over the anterolateral aspect of the knee. No significant effusion was noted. She does not have any pain with range of motion of the knee. She does have some slight tenderness over the abrasion on the knee. There is no instability. She can move the toes very well on the left side. She has brisk capillary refill about the toes on the left side. Her left hip did not have any significant pain with log rolling of the hip. I have reviewed the images and the reports from the radiologist including x-rays of the left elbow, the left hand, the left shoulder, the left wrist and also the pelvis and the left hip. Essentially it shows that the left side of the pelvis shows mild displaced superior and inferior pubic rami fractures. 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 The shoulder, hand an elbow x-rays were essentially unremarkable. IMPRESSION: 1. Left-sided superior and inferior pubic ramus fracture. 2. Left knee abrasion. 3. Contusions of the left shoulder, elbow and wrist, most notably about the wrist, rule out occult scaphoid fracture. DECISION-MAKING: As far as the pelvic fracture is concerned, I do feel that we can treat these nonoperatively. We discussed the recovery time line associated with these types of pelvic fracture. The patient can be weightbearing as tolerated. We will clinically follow the knee to see how she does and she can have the abrasion treated conservatively. The left wrist, I would like to obtain an MRI of the wrist to rule out an occult fracture. Currently she is in a wrist control splint. Final determination for treatment of the wrist will be deferred until we obtain the MRI, so as to help determine if she can weightbear through the wrist with the use of a walker which ultimately potentially complicate her clinical course if she cannot use that wrist for weightbearing with the walker. I potentially may need to cast the wrist depending on how she does. Will clinically follow the shoulder and elbow to see how she does over time to see if we need any further imaging such as MRI scans. All questions have been answered. Michael Kelly MD /STEPHEN /7:16 AM /1:32 PM
[2017-06-24] MEDS ORDERED: NALOXONE HCL 0.4 MG/ML AMP IV PUSH PRN (16:30)
[2017-06-24] MEDS ORDERED: ACETAMINOPHEN/HYDROcodone 325 MG/5 MG TAB PO PRN (16:30)
[2017-06-24] MEDS ORDERED: ACETAMINOPHEN/HYDROcodone 325 MG/10 MG TAB PO PRN (16:30)
[2017-06-24] MEDS: MORPHINE SULFATE 4 MG/ML INJ IV PUSH PRN ×2 (16:40→21:04)
[2017-06-24] MEDS: LOSARTAN 50 MG TAB PO SCH (21:03)
[2017-06-25 04:35] VITALS: BP 159/73; PULSE 76; RESP 16; TEMP 97.1; O2SAT 97
[2017-06-25 07:50] VITALS: PULSE 73
[2017-06-25 08:00] VITALS: BP 157/70; PULSE 73; RESP 17; TEMP 97.5; O2SAT 96
[2017-06-25] MEDS: PANTOPRAZOLE SOD 20 MG DELAYED RELEASE TAB PO SCH (09:24)
[2017-06-25] MEDS: LOSARTAN 50 MG TAB PO SCH ×2 (09:24→20:17)
[2017-06-25] MEDS: MAGNESIUM OXIDE 400 MG TAB PO SCH (09:24)
[2017-06-25] MEDS: ASPIRIN EC 81 MG TABEC PO SCH (09:25)
[2017-06-25] MEDS: DILTIAZEM-CD 120 MG CAP ER PO SCH (09:25)
[2017-06-25] MEDS: MORPHINE SULFATE 4 MG/ML INJ IV PUSH PRN (11:04)
[2017-06-25] MEDS ORDERED: MORP1TAB24 PO (11:06)
--- NOTE | 2017-06-25 11:06 | HHI.DS ---
Discharge Summary Admission Date Jun 23, 2017 at 22:49 Discharge Date: Jun 28, 2017 Admitting Diagnosis Pelvic fracture (1) Pelvic fracture ICD Code: S32.9XXA - Fracture of unspecified parts of lumbosacral spine and pelvis, initial encounter for closed fracture Status: Acute Procedures none Brief History - From Admission Written by Susi Costa, acting as scribe for Dr. Parikh on 06/24/17 at 08:46. Ms. Velazquez is a 77-year-old female with a known medical history of hypertension and COPD who presented to the ED status post fall at home. Patient states she was walking outside to get her mail when she slipped and lost her balance, falling on her left side. At the time patient states she "heard a crack in her hip". Patient complains of left hand/wrist pain as well as left hip pain. Denies hitting her head or loosing consciousness. She is a relatively healthy patient. Denies any recent illness including fever, chills, headache, dizziness, diplopia, cough, shortness of breath, abdominal pain, nausea, vomiting, diarrhea or dysuria. At the time of exam patient is awake, alert and oriented, following all commands. Continued complaint of left wrist/hand pain. Denies any numbness, tingling or paraesthesia in al extremities. Afebrile. VSS. CBC/BMP: 06/24/17 1005 06/24/17 1005 Significant Findings Laboratory Tests Test 06/23/17 19:18 06/24/17 10:05 White Blood Count 12.6 TH/MM3 (4.0-11.0) Neutrophils (%) (Auto) 77.7 % (16.0-70.0) Neutrophils # (Auto) 9.8 TH/MM3 (1.8-7.7) Sodium Level 133 MEQ/L (136-145) 134 MEQ/L (136-145) Potassium Level 3.4 MEQ/L (3.5-5.1) Monocytes (%) (Auto) 8.5 % (0.0-8.0) Random Glucose 131 MG/DL (74-106) Calcium Level 8.2 MG/DL (8.5-10.1) Imaging Last Impressions Wrist MRI 06/24/17 Signed Impressions: Service Date/Time: Saturday, June 24, 2017 10:30 - CONCLUSION: Hairline fracture through the scaphoid waist with a small amount of surrounding bony edema. Mild arthritis of the first carpometacarpal joint with subchondral cystic change within the first metacarpal base Grant Ramesh MD Head CT [id number]/23/171856 Signed Impressions: Service Date/Time: Friday, June 23, 2017 20:06 - CONCLUSION: No bleed or other acute intracranial abnormality. Chronic sinusitis. Apparent previous sinus surgery. Calvin Nash MD Chest X-Ray [id number]/171856 Signed Impressions: Service Date/Time: Friday, June 23, 2017 19:51 - CONCLUSION: No evidence of acute cardiopulmonary disease. Calvin Nash MD Cervical Spine CT [id number]/23/[id number] Signed Impressions: Service Date/Time: Friday, June 23, 2017 20:06 - CONCLUSION: Intact cervical spine. Multilevel degenerative changes as above. Calvin Nash MD Wrist X-Ray 06/23/17 Signed Impressions: Service Date/Time: Friday, June 23, 2017 21:40 - CONCLUSION: No fracture or subluxation of the left wrist. [id number] radial sided degenerative changes. Calvin Nash MD Shoulder X-Ray 06/23/17 Signed Impressions: Service Date/Time: Friday, June 23, 2017 19:56 - CONCLUSION: Chronic findings. No fracture or subluxation of the left shoulder. Calvin Nash MD Hip and Pelvis X-Ray 06/23/17 Signed Impressions: Service Date/Time: Friday, June 23, 2017 19:51 - CONCLUSION: Mildly displaced left superior pubic ramus fracture. Calvin Nash MD Hand X-Ray 06/23/17 Signed Impressions: Service Date/Time: Friday, June 23, 2017 21:47 - CONCLUSION: Intact left hand. Calvin Nash MD Elbow X-Ray 06/23/17 Signed Impressions: Service Date/Time: Danni, June 23, 2017 20:00 - CONCLUSION: No fracture, subluxation or joint effusion of the left elbow. Cavlin Nash MD PE at Discharge GENERAL: This is a well-nourished, well-developed patient, in no apparent distress. CARDIOVASCULAR: Regular rate and rhythm without murmurs, gallops, or rubs. RESPIRATORY: Clear to auscultation. Breath sounds equal bilaterally. No wheezes , rales, or rhonchi. GASTROINTESTINAL: Abdomen soft, non-tender, nondistended. No guarding. MUSCULOSKELETAL: Extremities without clubbing, cyanosis, or edema. No joint tenderness, effusion, or edema noted. Left knee abrasion. NEUROLOGICAL: Awake and alert. Cranial nerves II through XII intact. Motor and sensory grossly within normal limits. Five out of 5 muscle strength in all muscle groups. Normal speech. Pt update on day of discharge In the chair appears in nad. Says pain is controlled by med.s Doesn't fee comfortable to have dolan out and would like to have dolan for a couple of days more until she is able to ambulate better , plan to go to snf today. Had a BM . no more constipation. No n/v/d/c. No chest pain or sob. Hospital Course Ms. Velazquez is a very pleasant 77-year-old female with a known medical history of hypertension and COPD who presented to the ED status post fall at home. Patient states she was walking outside to get her mail when she slipped and lost her balance, falling on her left side. Patient with Left superior pubic ramus fracture and Left wrist/hand pain with scaphoid fracture Orthopedic surgeon consulted. Appreciate input. Received Control pain, Morphine IV PRN per pain scale available. Patient improved she was DC to SNF in stable condition to f/u as OP with PCP and consultants. Pt Condition on Discharge: Stable Discharge Disposition: Discharge to SNF Discharge Time: > 30 minutes Discharge Instructions DIET: Follow Instructions for: Heart Healthy Diet Activities you can perform: Weight Bearing as Jovita Follow up Referrals: Orthopedics - 1 Week with Parag Mcgill MD PCP Follow-up - 2-3 Days New Medications: Morphine ER (Morphine ER) 15 Mg Tab 15 MG PO DAILY for Pain Management, #15 TAB 0 Refills Sennosides-Docusate Sodium (Azul-Colace) 8.6-50 Mg Tab 2 TAB PO BID for Constipation, #60 TAB 0 Refills Continued Medications: Aspirin DR (Aspirin EC) 81 Mg Tabdr 81 MG PO DAILY, TAB 0 Refills Diltiazem (Diltiazem) 120 Mg Tab 120 MG PO DAILY for Angina, #120 TAB 0 Refills Losartan (Losartan) 50 Mg Tab 50 MG PO BID for Blood Pressure Management, #60 TAB 0 Refills Magnesium Oxide (Magnesium Oxide) 400 Mg Tab 400 MG PO DIRECTED for Nutritional Supplement, TAB 0 Refills Rabeprazole (Aciphex) 20 Mg Tab 20 MG PO DAILY for Reflux, #30 TAB 0 Refills Netta Parikh MD Jun 25, 2017 11:06
[2017-06-25] MEDS ORDERED: PERI8.6T PO (11:09)
[2017-06-25] MEDS ORDERED: BISACODYL 10 MG SUPP RECTAL PRN (11:15)
[2017-06-25] MEDS ORDERED: SENNOSIDES 8.6 MG TAB PO PRN (11:15)
[2017-06-25] MEDS ORDERED: MORPHINE SULFATE 15 MG TAB PO PRN (11:15)
[2017-06-25] MEDS ORDERED: NALOXONE HCL 0.4 MG/ML AMP IV PUSH PRN (11:15)
[2017-06-25] MEDS ORDERED: ACETAMINOPHEN 325 MG TAB PO PRN (11:15)
[2017-06-25] MEDS ORDERED: MAGNESIUM HYDROXIDE SUSP 30 ML CUP PO PRN (11:15)
[2017-06-25] MEDS ORDERED: LACTULOSE SYRUP 20 GM/30 ML CUP PO PRN (11:15)
[2017-06-25 12:00] VITALS: BP 145/72; PULSE 75; RESP 17; TEMP 97.4; O2SAT 97
--- NOTE | 2017-06-25 13:08 | PD.ORT.PN ---
Subjective Subjective Remarks Patient is resting comfortably in bed in NAD. Patient reports mild pain to the right pelvis and left hand. Pain is much better in the left hand with the cast. Objective Vitals Vital Signs Date Time Temp Pulse Resp B/P (MAP) Pulse Ox O2 Delivery O2 Flow Rate FiO2 06/25/17 08:00 97.5 73 17 157/70 (99) 96 06/25/17 07:50 73 06/25/17 04:35 97.1 76 16 159/73 (101) 97 06/24/17 23:20 97.9 72 16 145/65 (91) 95 06/24/17 21:50 97.6 77 17 145/66 (92) 94 06/24/17 20:26 75 06/24/17 17:00 18 06/24/17 16:00 97.9 76 18 175/73 (107) 97 I/O 06/24/17 06/24/17 06/24/17 06/25/17 06/25/17 06/25/17 07:00 15:00 23:00 07:00 15:00 23:00 Intake Total 600 ml 480 ml 240 ml Output Total 1150 ml 700 ml 300 ml Balance -550 ml -220 ml -60 ml Intake Oral 600 ml 480 ml 240 ml Output Urine Total 1150 ml 700 ml 300 ml Stool Total 0 ml # Bowel Movements 0 0 Result Diagram: 06/24/17 1005 06/24/17 1005 Objective Remarks LUE Thumb spica cast in place. Cast is well fitting. Patient moves fingers and has good sensation to light touch x 5. BCR X 5. Pelvis EHL/TA/G intact bilaterally. Calves are soft and nontender. 2+ pedal pulses bilaterally. + SILT. Assessment & Plan Assessment and Plan 1. Left-sided superior and inferior pubic ramus fracture. 2. Left knee abrasion. 3. Contusions of the left shoulder, elbow and wrist, most notably about the wrist 4. Left nondisplaced scaphoid fracture -WBAT BLE -NWB LUE -Thumb spica cast to the left hand/wrist -Platform walker form ambulation -Tylenol for pain medication -Stable for discharge from ortho standpoint -F/U in the office in 1-[address] Mcgill or ROSANNA Austin Daniel Scott ARNP Jun 25, 2017 13:08
[2017-06-25] MEDS: ACETAMINOPHEN 500 MG CPLT PO PRN ×3 (14:00→22:27)
[2017-06-25] MEDS ORDERED: ONDANSETRON ODT 4 MG TAB PO PRN (14:30)
--- NOTE | 2017-06-25 15:56 | HHI.PR ---
Subjective Remarks Patient says she has no allergic reaction to morphine and also can take tylenol. Pain is not controlled by tylenol. No fever or chills. Has constipation. No nausea or vomiting. Objective Vitals Vital Signs Date Time Temp Pulse Resp B/P (MAP) Pulse Ox O2 Delivery O2 Flow Rate FiO2 06/25/17 12:00 97.4 75 17 145/72 (96) 97 06/25/17 08:00 97.5 73 17 157/70 (99) 96 06/25/17 07:50 73 06/25/17 04:35 97.1 76 16 159/73 (101) 97 06/24/17 23:20 97.9 72 16 145/65 (91) 95 06/24/17 21:50 97.6 77 17 145/66 (92) 94 06/24/17 20:26 75 06/24/17 17:00 18 06/24/17 16:00 97.9 76 18 175/73 (107) 97 I/O 06/24/17 06/24/17 06/24/17 06/25/17 06/25/17 06/25/17 07:00 15:00 23:00 07:00 15:00 23:00 Intake Total 600 ml 480 ml 240 ml Output Total 1150 ml 700 ml 300 ml Balance -550 ml -220 ml -60 ml Intake Oral 600 ml 480 ml 240 ml Output Urine Total 1150 ml 700 ml 300 ml Stool Total 0 ml # Bowel Movements 0 0 Result Diagram: 06/24/17 1005 06/24/17 1005 Imaging Last Impressions Wrist MRI 06/24/17 0000 Signed Impressions: Service Date/Time: Saturday, June 24, 2017 10:30 - CONCLUSION: Hairline fracture through the scaphoid waist with a small amount of surrounding bony edema. Mild arthritis of the first carpometacarpal joint with subchondral cystic change within the first metacarpal base Grant Ramesh MD Head CT 06/23/171856 Signed Impressions: Service Date/Time: Friday, June 23, 2017 20:06 - CONCLUSION: No bleed or other acute intracranial abnormality. Chronic sinusitis. Apparent previous sinus surgery. Calvin Nash MD Chest X-Ray 06/23/171856 Signed Impressions: Service Date/Time: Friday, June 23, 2017 19:51 - CONCLUSION: No evidence of acute cardiopulmonary disease. Calvin Nash MD Cervical Spine CT 06/23/17 1857 Signed Impressions: Service Date/Time: Friday, June 23, 2017 20:06 - CONCLUSION: Intact cervical spine. Multilevel degenerative changes as above. Calvin Nash MD Wrist X-Ray 06/23/17 0000 Signed Impressions: Service Date/Time: Friday, June 23, 2017 21:40 - CONCLUSION: No fracture or subluxation of the left wrist. Xcet-[id number]-dyzbzdfg radial sided degenerative changes. Calvin Nash MD Shoulder X-Ray 06/23/17 0000 Signed Impressions: Service Date/Time: Friday, June 23, 2017 19:56 - CONCLUSION: Chronic findings. No fracture or subluxation of the left shoulder. Calvin Nash MD Hip and Pelvis X-Ray 06/23/17 0000 Signed Impressions: Service Date/Time: Friday, June 23, 2017 19:51 - CONCLUSION: Mildly displaced left superior pubic ramus fracture. Calvin Nash MD Hand X-Ray 06/23/17 0000 Signed Impressions: Service Date/Time: Friday, June 23, 2017 21:47 - CONCLUSION: Intact left hand. aClvin Nash MD Elbow X-Ray 06/23/17 0000 Signed Impressions: Service Date/Time: Friday, June 23, 2017 20:00 - CONCLUSION: No fracture, subluxation or joint effusion of the left elbow. Calvin Nash MD Objective Remarks GENERAL: This is a well-nourished, well-developed patient, in no apparent distress. CARDIOVASCULAR: Regular rate and rhythm without murmurs, gallops, or rubs. RESPIRATORY: Clear to auscultation. Breath sounds equal bilaterally. No wheezes , rales, or rhonchi. GASTROINTESTINAL: Abdomen soft, non-tender, nondistended. No guarding. MUSCULOSKELETAL: Extremities without clubbing, cyanosis, or edema. No joint tenderness, effusion, or edema noted. Left knee abrasion. NEUROLOGICAL: Awake and alert. Cranial nerves II through XII intact. Motor and sensory grossly within normal limits. Five out of 5 muscle strength in all muscle groups. Normal speech. A/P Problem List: (1) Pelvic fracture ICD Code: S32.9XXA - Fracture of unspecified parts of lumbosacral spine and pelvis, initial encounter for closed fracture Status: Acute Assessment and Plan Ms. Velazquez is a 77-year-old female with a known medical history of hypertension and COPD who presented to the ED status post fall at home. Patient states she was walking outside to get her mail when she slipped and lost her balance, falling on her left side. Left superior pubic ramus fracture Left wrist/hand pain - Hip and pelvis x-ray reviewed showing mildly displaced left superior pubic ramus fracture. - Orthopedic surgeon consulted. Appreciate input. - Control pain, Morphine IV PRN per pain scale available. - Left wrist and hand x-ray reviewed showing no fracture, ortho ordered an MRI to look closer, continued complaint of pain in left hand/wrist. Follow. - Left shoulder x-ray, left elbow x-ray, chest x-ray and head CT all reviewed and unremarkable. Hypertension: Mildly elevated, could be pain related. Will restart home BP medications. Monitor BP closely. DVT Prophylaxis: SCDs. Chemical prophylaxis per ortho team. DC plan : Needs rehab. Discussed with Marie from case management . DEWAYNE is also following for DC plan Problem Qualifiers (1) Pelvic fracture: Qualified Codes: S32.512A - Fracture of superior rim of left pubis, initial encounter for closed fracture Netta Parikh MD Jun 25, 2017 15:56
[2017-06-25 16:00] VITALS: BP 130/80; PULSE 70; RESP 18; TEMP 97.4; O2SAT 97
[2017-06-25] MEDS: SODIUM CHLORIDE 0.9% FLUSH 10 ML FLUSH IV FLUSH SCH (20:14)
[2017-06-25] MEDS: DOCUSATE SODIUM 50 MG/SENNA 8.6 MG TAB PO SCH (20:17)
[2017-06-25 20:51] VITALS: BP 154/69; PULSE 69; RESP 16; TEMP 96.7; O2SAT 95
[2017-06-26 00:06] VITALS: BP 136/62; PULSE 65; RESP 16; TEMP 97; O2SAT 95
[2017-06-26 04:42] VITALS: BP 138/69; PULSE 73; RESP 16; TEMP 97.2; O2SAT 96
[2017-06-26] MEDS: ACETAMINOPHEN 500 MG CPLT PO PRN ×2 (05:57→11:10)
[2017-06-26 07:30] VITALS: PULSE 75
[2017-06-26] MEDS: LOSARTAN 50 MG TAB PO SCH (07:42)
[2017-06-26] MEDS: DILTIAZEM-CD 120 MG CAP ER PO SCH (07:43)
[2017-06-26] MEDS: MAGNESIUM OXIDE 400 MG TAB PO SCH (07:43)
[2017-06-26] MEDS: PANTOPRAZOLE SOD 20 MG DELAYED RELEASE TAB PO SCH (07:43)
[2017-06-26] MEDS: ASPIRIN EC 81 MG TABEC PO SCH (07:43)
[2017-06-26] MEDS: SODIUM CHLORIDE 0.9% FLUSH 10 ML FLUSH IV FLUSH SCH (07:44)
[2017-06-26] MEDS: DOCUSATE SODIUM 50 MG/SENNA 8.6 MG TAB PO SCH (07:44)
[2017-06-26 08:00] VITALS: BP 126/73; PULSE 69; RESP 18; TEMP 96.6; O2SAT 94
== END 2017-06-26 11:48 | DRG 536 ==
LOC: NEPE 18:36 → NEDA 22:48 → OBSVTOIN 22:49 → N06B 06-24 01:44
PROVIDERS: ADMIT Hospitalist; ATTEND Hospitalist
DX: S32.512A Fracture of superior rim of left pubis, initial encounter for closed fracture (principal); J44.9 Chronic obstructive pulmonary disease, unspecified; K75.9 Inflammatory liver disease, unspecified; S62.009A Unspecified fracture of navicular [scaphoid] bone of unspecified wrist, initial encounter for closed fracture; I10 Essential (primary) hypertension; W01.0XXA Fall on same level from slipping, tripping and stumbling without subsequent striking against object, initial encounter; Y92.009 Unspecified place in unspecified non-institutional (private) residence as the place of occurrence of the external cause; K21.9 Gastro-esophageal reflux disease without esophagitis; S80.212A Abrasion, left knee, initial encounter; J32.9 Chronic sinusitis, unspecified; M19.90 Unspecified osteoarthritis, unspecified site; M25.532 Pain in left wrist; K59.00 Constipation, unspecified; Z86.73 Personal history of transient ischemic attack (TIA), and cerebral infarction without residual deficits; E07.9 Disorder of thyroid, unspecified; Z90.710 Acquired absence of both cervix and uterus; S40.029A Contusion of unspecified upper arm, initial encounter; Z79.82 Long term (current) use of aspirin
CPT/HCPCS: 51702; 70450; 71010; 72125; 73030; 73080; 73110; 73130; 73221; 73502; 80048; 85025; 85610; 85730; 86850; 86900; 86901; 96374; J2270; J2405; L3908

== ENCOUNTER 2017-12-28 18:37 | Observation (INO) | payer MEDICARE, OTHER ==
[~2017-12-28 18:37] MED LIST changes: -ADVA250A INH; -ASPI81 PO; +ASPI81TA23 PO; -B-1210005 PO; -CALC-197 PO; -CARD120T4 PO; -COZA100T PO; +DILT120T PO; -DOCU100T9 PO; +LOSA50TA PO; -MAGN400C2 PO; +MAGN400T2 PO; -META800 PO; +MORP1TAB24 PO; +PERI8.6T PO; -REST0.05 OU; -TAB-TAB PO; -WAL-10TA2 PO; -ZAFI20TA OR
[2017-12-28 19:08] VITALS: BP 172/79; PULSE 66; RESP 18; TEMP 98.6; O2SAT 98
--- NOTE | 2017-12-28 20:40 | PD ---
HPI Chief Complaint: Dizziness Time Seen by Provider: 19:43 Travel History International Travel<30 days: No Contact w/Intl Traveler<30days: No Traveled to known affect area: No History of Present Illness HPI 77-year-old female that presents to the ED for evaluation of dizziness. Per patient she had a dizzy spell today will having dinner. Per patient she finished her dinner and then she started feeling very dizzy and nauseous. She went to the bathroom and she did not throughout but she started feeling she had to get a bowel movement. This caused her some chest discomfort as well as some pressure in her chest. She states that she developed more dizziness and she called the ambulance. She denies any numbness, tilling, weakness. No chest pressure at this time. No history of heart disease but history of CVA in the past per patient about 8 years ago having weakness to her right arm to last about 2 hours. She denies taking any blood thinners but she has a history of A. fib and takes aspirin, diltiazem and losartan. No injuries or head injuries. No blurry vision or double vision. Multiple allergies to different medications. Hasn't seen anybody for this. She currently has no pain I tend to the back of her head. On the left side. PFSH Past Medical History Arthritis: Yes Asthma: Yes Autoimmune Disease: No Blood Disorders: No Heart Rhythm Problems: Yes Cancer: No Cardiovascular Problems: Yes (HTN , afib) High Cholesterol: No Chest Pain: No Congestive Heart Failure: No COPD: Yes Cerebrovascular Accident: Yes Diabetes: No Diminished Hearing: No Endocrine: Yes GERD: No Glaucoma: No Genitourinary: No Headaches: Yes Hepatitis: Yes Hiatal Hernia: No Hypertension: Yes Immune Disorder: No Kidney Stones: No Musculoskeletal: Yes Neurologic: Yes Psychiatric: No Reproductive: No Respiratory: No Myocardial Infarction: No Renal Failure: No Seizures: No Sleep Apnea: No Thyroid Disease: Yes Ulcer: Yes ?: Not Past Surgical History Abdominal Surgery: Yes (ARACELIS-1975, TONSILS & ADNOIDS - 1949, APPENDECTOMY - 1953) AICD: No Appendectomy: Yes Cholecystectomy: Yes Endocrine Surgery: Yes Genitourinary Surgery: No Gynecologic Surgery: Yes (CYSTOCELE SURGERY) Hysterectomy: Yes Insulin Pump: No Pacemaker: No Tonsillectomy: Yes Other Surgery: Yes (SINUS SURGERY 1988 AND 1990) Social History Alcohol Use: No Tobacco Use: No Substance Use: No Allergies-Medications (Allergen,Severity, Reaction): Coded Allergies: Sulfa (Sulfonamide Antibiotics) (Unverified Allergy, Severe, HIVES, ) celecoxib (Unverified Allergy, Severe, Rash, 12/28/17) naproxen (Unverified Allergy, Severe, Tachycardia, 12/28/17) amoxicillin (Unverified Allergy, Mild, Rash, 12/28/17) clavulanic acid (Unverified Allergy, Mild, Rash, 12/28/17) flunisolide (Unverified Allergy, Mild, Hallucinations, 12/28/17) hydrochlorothiazide (Unverified Allergy, Mild, Rash, 12/28/17) ibuprofen (Unverified Allergy, Mild, Tachycardia, 12/28/17) lisinopril (Unverified Allergy, Mild, Edema, 12/28/17) rofecoxib (Unverified Allergy, Mild, Tachycardia, 12/28/17) tramadol (Unverified Allergy, Mild, Hallucinations, 12/28/17) NSAIDS (Non-Steroidal Anti-Inflamma (Verified Allergy, Unknown, GI, ) metoprolol (Verified Allergy, Unknown, UNKNOWN, 12/28/17) midazolam (Verified Allergy, Unknown, 12/28/17) codeine (Unverified Adverse Reaction, Mild, NAUSEA/VOMITING, 12/28/17) Uncoded Allergies: ARTHROTEC (Allergy, Severe, Rash, 11/05/12) NASALIDE (Allergy, Unknown, 06/23/17) Reported Meds & Prescriptions Reported Meds & Active Scripts Active Azul-Colace (Sennosides-Docusate Sodium) 8.6-50 Mg Tab 2 Tab PO BID Morphine ER (Morphine Sulfate) 15 Mg Tab 15 Mg PO DAILY Reported Magnesium Oxide 400 Mg Tab 400 Mg PO DIRECTED Aciphex (Rabeprazole Sodium) 20 Mg Tab 20 Mg PO DAILY Diltiazem (Diltiazem HCl) 120 Mg Tab 120 Mg PO DAILY Losartan (Losartan Potassium) 50 Mg Tab 50 Mg PO BID Aspirin EC (Aspirin) 81 Mg Tabdr 81 Mg PO DAILY Review of Systems Except as stated in HPI: all other systems reviewed are Neg Physical Exam Narrative GENERAL: SKIN: Warm and dry. HEAD: Atraumatic. Normocephalic. EYES: Pupils equal and round 4mms reactive to light and accomodation. No scleral icterus. No injection or drainage. ENT: No nasal bleeding or discharge. Mucous membranes pink and moist. Tongue is midline. No uvula deviation. NECK: Trachea midline. No JVD. CARDIOVASCULAR: Regular rate and rhythm. No murmurs, S3, S4. RESPIRATORY: No accessory muscle use. Clear to auscultation. Breath sounds equal bilaterally. GASTROINTESTINAL: Abdomen soft, non-tender, nondistended. Hepatic and splenic margins not palpable. MUSCULOSKELETAL: Extremities without clubbing, cyanosis, or edema. No obvious deformities. Full range of motion of the upper and lower extremity is bilaterally. 2+ pulses bilaterally. NEUROLOGICAL: Awake and alert. No obvious cranial nerve deficits. Motor grossly within normal limits. Five out of 5 muscle strength in the arms and legs. Normal speech. PSYCHIATRIC: Appropriate mood and affect; insight and judgment normal. Data Data Last Documented VS Vital Signs Date Time Temp Pulse Resp B/P (MAP) Pulse Ox O2 Delivery O2 Flow Rate FiO2 12/28/17 19:08 98.6 66 18 172/79 (110) 98 Orders Orders Electrocardiogram (12/28/17 20:18) Complete Blood Count With Diff (12/28/17 20:18) Comprehensive Metabolic Panel (12/28/17 20:18) Ckmb (Isoenzyme) Profile (12/28/17 20:18) Troponin I (12/28/17 20:18) Prothrombin Time / Inr (Pt) (12/28/17 20:18) Act Partial Throm Time (Ptt) (12/28/17 20:18) Urinalysis - C+S If Indicated (12/28/17 20:18) Magnesium (Mg) (12/28/17 20:18) Thyroid Stimulating Hormone (12/28/17 20:18) Chest, Single Ap (12/28/17 20:18) Ct Brain W/O Iv Contrast(Rout) (12/28/17 20:18) Iv Access Insert/Monitor (12/28/17 20:18) Ecg Monitoring (12/28/17 20:18) Oximetry (12/28/17 20:18) Orthostatic Vital Signs (12/28/17 20:31) MDM Medical Decision Making Medical Screen Exam Complete: Yes Emergency Medical Condition: Yes Medical Record Reviewed: Yes Differential Diagnosis Syncope versus vertigo versus cardiac syncope versus chest pain versus a typical chest pain versus ACS versus CVA Narrative Course 77-year-old female that presents to the ED for evaluation of dizziness. Patient was properly examined and was found to have signs and symptoms concerning for cardiac in nature versus vertigo. Labs and imaging were ordered. Case will be signed out to my attending Dr. Zacarias pending disposition and plan Saqib Trevizo Dec 28, 2017 20:40
--- NOTE | 2017-12-28 21:01 | RADRPT ---
EXAM DATE/TIME: 12/28/2017 20:24 [facility] COMPARISON: CHEST SINGLE AP, June 23, 2017, 19:51. INDICATIONS : Syncope MEDICAL HISTORY : Hypertension. Chronic obstructive pulmonary disease SURGICAL HISTORY : Tonsillectomy. Hysterectomy. Appendectomy. Cholecystectomy ENCOUNTER: Initial ACUITY: 1 day PAIN SCORE: 0/10 LOCATION: chest FINDINGS: A single view of the chest demonstrates the lungs to be symmetrically aerated without evidence of mas s, infiltrate or effusion. Mild basilar atelectasis. The cardiomediastinal contours are unremarkable . Osseous structures are intact. CONCLUSION: 1. Mild basilar atelectasis. Cal Ortega MD on December 28, 2017 at 20:58 Board Certified Radiologist. This report was verified electronically.
[2017-12-28 21:22] VITALS: BP_SYST 178; BP_SYST 193; BP_SYST 209; BP_DIAS 77; BP_DIAS 79; BP_DIAS 82
[2017-12-28 21:54] LABS: AUTOMATED NEUTROPHIL # 8.4 TH/MM3 (1.8-7.7); BASOPHIL % 0.4 % (0.0-2.0); EOSINOPHIL # 1.1 TH/MM3 (0-0.4); HEMOGLOBIN 13.2 GM/DL (11.6-15.3); LYMPH % 18.7 % (9.0-44.0); LYMPHOCYTE # 2.3 TH/MM3 (1.0-4.8); MEAN CELL VOLUME 87.3 FL (80.0-100.0); MEAN CORPUSCULAR HEMOGLOBIN 29.5 PG (27.0-34.0); MEAN CORPUSCULAR HGB CONC 33.8 % (32.0-36.0); MEAN PLATELET VOLUME 7.3 FL (7.0-11.0); MONOCYTE # 0.6 TH/MM3 (0-0.9); NEUT % 66.9 % (16.0-70.0); PLATELET COUNT 327 TH/MM3 (150-450); RED BLOOD COUNT 4.47 MIL/MM3 (4.00-5.30); RED CELL DISTRIBUTION WIDTH 13.8 % (11.6-17.2); WHITE BLOOD COUNT 12.5 TH/MM3 (4.0-11.0)
--- NOTE | 2017-12-28 21:55 | RADRPT ---
EXAM DATE/TIME: 12/28/2017 21:32 [facility] COMPARISON: CT BRAIN W/O CONTRAST, June 23, 2017, 20:06. INDICATIONS : Syncope episode. RADIATION DOSE: 37.53 CTDIvol (mGy) MEDICAL HISTORY : Hypertension. Stroke SURGICAL HISTORY : None. ENCOUNTER: Initial ACUITY: 1 day PAIN SCALE: 0/10 LOCATION: cranial TECHNIQUE: Multiple contiguous axial images were obtained of the head. Using automated exposure control and adj ustment of the mA and/or kV according to patient size, radiation dose was kept as low as reasonably a chievable to obtain optimal diagnostic quality images. DICOM format image data is available electro nically for review and comparison. FINDINGS: CEREBRUM: The ventricles are normal for age. No evidence of midline shift, mass lesion, hemorrhage or acute in farction. No extra-axial fluid collections are seen. POSTERIOR FOSSA: The cerebellum and brainstem are intact. The 4th ventricle is midline. The cerebellopontine angle i s unremarkable. EXTRACRANIAL: The visualized portion of the orbits is intact. SKULL: The calvaria is intact. No evidence of skull fracture. CONCLUSION: 1. No acute intracranial abnormalities. Cal Ortega MD on December 28, 2017 at 21:51 Board Certified Radiologist. This report was verified electronically.
[2017-12-28 21:59] LABS: BACTERIA, URINE RARE /hpf; BILIRUBIN, URINE NEG (NEG); BLOOD, URINE TRACE (NEG); GLUCOSE,URINE NEG (NEG); KETONE, URINE NEG (NEG); NITRITE,URINE NEG (NEG); PH, URINE 6.5 (5.0-8.5); URINE COLOR LIGHT-YELLOW (YELLW/STRAW); URINE LEUKOCYTE ESTERASE NEG (NEG)
[2017-12-28 22:17] LABS: ALBUMIN 3.8 GM/DL (3.4-5.0); AST (GOT) 17 U/L (15-37); BICARBONATE 24.6 MEQ/L (21.0-32.0); BLOOD UREA NITROGEN 19 MG/DL (7-18); CALCIUM 8.8 MG/DL (8.5-10.1); CHLORIDE 100 MEQ/L (98-107); CREATININE 0.68 MG/DL (0.50-1.00); GLOMERULAR FILTRATION RATE 83 ML/MIN (>89); GLUCOSE,RANDOM 122 MG/DL (74-106); MAGNESIUM 2.4 MG/DL (1.5-2.5); SODIUM (NA) 134 MEQ/L (136-145)
[2017-12-28 22:20] LABS: PROTHROMBIN TIME - PATIENT 10.1 SEC (9.8-11.6)
[2017-12-28 22:30] LABS: ALKALINE PHOSPHATASE 94 U/L (45-117); ALT (GPT) 24 U/L (10-53); TOTAL BILIRUBIN ADULT 0.2 MG/DL (0.2-1.0); TOTAL PROTEIN 7.4 GM/DL (6.4-8.2); TROPONIN I 0.07 NG/ML (0.02-0.05)
[2017-12-28] MEDS ORDERED: GLUCAGON 1 MG/ML VIAL OTHER PRN (23:00)
[2017-12-28] MEDS ORDERED: DEXTROSE 50% IN WATER 50 ML VIAL(D50) IV PUSH PRN (23:00)
[2017-12-28] MEDS ORDERED: SODIUM CHLORIDE 0.9% FLUSH 10 ML FLUSH IV FLUSH PRN (23:00)
--- NOTE | 2017-12-28 23:06 | PD ---
Data Data Last Documented VS Vital Signs Date Time Temp Pulse Resp B/P (MAP) Pulse Ox O2 Delivery O2 Flow Rate FiO2 12/28/17 21:22 64 178/77 (110) 64 193/79 (117) 66 209/82 (124) 12/28/17 19:08 98.6 18 98 Orders Orders Electrocardiogram (12/28/17 20:18) Complete Blood Count With Diff (12/28/17 20:18) Comprehensive Metabolic Panel (12/28/17 20:18) Ckmb (Isoenzyme) Profile (12/28/17 20:18) Troponin I (12/28/17 20:18) Prothrombin Time / Inr (Pt) (12/28/17 20:18) Act Partial Throm Time (Ptt) (12/28/17:18) Urinalysis - C+S If Indicated (12/28/17 20:18) Magnesium (Mg) (12/28/17 20:18) Thyroid Stimulating Hormone (12/28/17 20:18) Chest, Single Ap (12/28/17 20:18) Ct Brain W/O Iv Contrast(Rout) (12/28/17 20:18) Iv Access Insert/Monitor (12/28/17 20:18) Ecg Monitoring (12/28/17 20:18) Oximetry (12/28/17 20:18) Orthostatic Vital Signs (12/28/17 20:31) CKMB (12/28/17 21:09) CKMB% (12/28/17 21:09) Place In Observation (12/28/17 ) Vital Signs (Adult) Q2HX12,Q4H (12/28/17 22:47) Nih Stroke Scale - Nihss .Daily (12/28/17 22:47) Neuro Checks Q2HX12,Q4H (12/28/17 22:47) Notify Dr: Other (12/28/17 22:47) Remove Urinary Catheter .ONCE (12/28/17 22:47) Pt Request For Service (12/28/17 22:47) Case Management Consult (12/28/17 ) Activity Oob Ad Carmencita (12/28/17 22:47) Scd Bilateral/Knee High LYNDA.QSHIFT (12/28/17 22:47) Diet Npo (12/29/17 Breakfast) Hemoglobin (Hgb) A1c (12/28/17 22:47) Lipid Profile (12/29/17 06:00) Us Carotid Arteries Comp Bilat (12/28/17 ) Mra Brain W/O Contrast (Cow) (12/28/17 ) Mri Brain W/O Contrast (12/28/17 ) Echo 2d Comp With Doppler (12/28/17 ) ^ Hold Medication (12/28/17 22:47) Consult Neurology (12/28/17 ) Sodium Chloride 0.9% Flush (Ns Flush) (12/29/17 09:00) Sodium Chloride 0.9% Flush (Ns Flush) (12/28/17 23:00) Dextrose 50% In Rissa (Vial) Inj (D50w (Vi (12/28/17 23:00) Glucagon Inj (Glucagon Inj) (12/28/17 23:00) Radio Producer / Telemetry LYNDA.Q8H (12/28/17 22:47) Consult Stroke Navigator (12/28/17 ) Admit Order (Ed Use Only) (12/28/17 ) Labs Laboratory Tests Test 12/28/17 21:09 12/28/17 21:14 White Blood Count 12.5 TH/MM3 Red Blood Count 4.47 MIL/MM3 Hemoglobin 13.2 GM/DL Hematocrit 39.0 % Mean Corpuscular Volume 87.3 FL Mean Corpuscular Hemoglobin 29.5 PG Mean Corpuscular Hemoglobin Concent 33.8 % Red Cell Distribution Width 13.8 % Platelet Count 327 TH/MM3 Mean Platelet Volume 7.3 FL Neutrophils (%) (Auto) 66.9 % Lymphocytes (%) (Auto) 18.7 % Monocytes (%) (Auto) 5.0 % Eosinophils (%) (Auto) 9.0 % Basophils (%) (Auto) 0.4 % Neutrophils # (Auto) 8.4 TH/MM3 Lymphocytes # (Auto) 2.3 TH/MM3 Monocytes # (Auto) 0.6 TH/MM3 Eosinophils # (Auto) 1.1 TH/MM3 Basophils # (Auto) 0.0 TH/MM3 CBC Comment DIFF FINAL Differential Comment Prothrombin Time 10.1 SEC Prothromb Time International Ratio 1.0 RATIO Activated Partial Thromboplast Time 27.3 SEC Blood Urea Nitrogen 19 MG/DL Creatinine 0.68 MG/DL Random Glucose 122 MG/DL Total Protein 7.4 GM/DL Albumin 3.8 GM/DL Calcium Level 8.8 MG/DL Magnesium Level 2.4 MG/DL Alkaline Phosphatase 94 U/L Aspartate Amino Transf (AST/SGOT) 17 U/L Alanine Aminotransferase (ALT/SGPT) 24 U/L Total Bilirubin 0.2 MG/DL Sodium Level 134 MEQ/L Potassium Level 4.0 MEQ/L Chloride Level 100 MEQ/L Carbon Dioxide Level 24.6 MEQ/L Anion Gap 9 MEQ/L Estimat Glomerular Filtration Rate 83 ML/MIN Total Creatine Kinase 105 U/L Creatine Kinase MB 1.8 NG/ML Troponin I 0.07 NG/ML Thyroid Stimulating Hormone 3rd Gen 1.270 uIU/ML Urine Color LIGHT-YELLOW Urine Turbidity CLEAR Urine pH 6.5 Urine Specific [place] 1.007 Urine Protein NEG mg/dL Urine Glucose (UA) NEG mg/dL Urine Ketones NEG mg/dL Urine Occult Blood TRACE Urine Nitrite NEG Urine Bilirubin NEG Urine Urobilinogen LESS THAN 2.0 MG/DL Urine Leukocyte Esterase NEG Urine RBC LESS THAN 1 /hpf Urine WBC LESS THAN 1 /hpf Urine Bacteria RARE /hpf Microscopic Urinalysis Comment CULT NOT INDICATED MDM Supervised Visit with LEONARDO: Yes Narrative Course The history, exam, and medical decision-making in the associated mid-level provider note were completed with my assistance. I reviewed and agree with the findings presented. I attest that I had a [id number] encounter with the patient on the same day, and personally performed and documented my assessment and findings in the medical record. *My assessment and Findings: 77-year-old woman presents to the emergency department complaining of abrupt onset of vertigo. Initial workup symptoms are all unremarkable. Troponins minimally elevated. She has a history of A. fib, she is just on aspirin. In sinus rhythm now. History of TIA in the past. Looks well. Still very vertiginous with unsteady gait. No focal findings. Recommend admission for observation for workup to rule out CVA, consider anticoagulation given history of TIA in the past. She may not go into A. fib now. She may have had a Holter in the past. Outpatient follow-up. Diagnosis Primary Impression: Vertigo Admitting Information Admitting Physician Requests: Observation Grant Zacarias MD Dec 28, 2017 23:06
--- NOTE | 2017-12-28 23:51 | RADRPT ---
EXAM DATE/TIME: 12/28/2017 22:58 [facility] COMPARISON: No previous studies available for comparison. EXTERNAL COMPARISON : [facility], US CAROTID ARTERIES, March 13, 2013[facility], US CAROTID ARTERIES, Decem 2010. INDICATIONS : Transient ischemic attack. MEDICAL HISTORY : Hypertension. Chronic obstructive pulmonary disease. Arthritis. Thyroid disease. Cerebrovascular acci dent. Heaad trauma. Headaches. Dizziness. Afib. Asthma. Ulcer. Measles. Hepatitis. SURGICAL HISTORY : Cholecystectomy. Appendectomy. Tonsillectomy. Hysterectomy. Cystocele surgery. Sinus surgery. ENCOUNTER: Subsequent ACUITY: 1 day PAIN SCORE: 0/10 LOCATION: Bilateral neck PEAK SYSTOLIC VELOCITIES (cm/sec): ICA/CCA RATIO: Right: 1.0 Left: 0.7 ICA: Right: 86 Left: 88 CCA: Right: 84 Left: 130 ECA: Right: 97 Left: 91 VERTEBRAL: Right: 57 antegrade Left: 55 antegrade Elevated flow velocities and ICA/CCA ratios have been found to correlate with increased degrees of vessel stenosis, calculated as percentage of diameter relative to a normal segment of distal ICA/CCA FINDINGS: RIGHT CAROTID: Mild calcified plaque in the carotid bulb. No significant stenosis is visualized. The waveforms are within normal limits. LEFT CAROTID: Mild calcified plaque in the carotid bulb. No significant stenosis is visualized. The waveforms are within normal limits. VERTEBRAL ARTERIES: Antegrade flow is seen in both vertebral arteries. MISCELLANEOUS: None. CONCLUSION: Bilateral plaque formation with hemodynamic profile characteristic of less than 50% stenoses. Eugenio Sanchez MD on December 28, 2017 at 23:48 Board Certified Radiologist. This report was verified electronically.
[2017-12-29] VITALS (8 sets, daily range): BP systolic 127–187; BP diastolic 48–78; PULSE 60–78; RESP 16–18; TEMP 98.1; O2SAT 92–100
--- NOTE | 2017-12-29 02:54 | HHI.HP ---
HPI Service [facility] Primary Care Physician Kimberly Arroyo MD Admission Diagnosis Vertigo, r/o CVA Diagnoses: (1) Vertigo Chief Complaint: Vertigo, dizziness, headache Travel History International Travel<30 Days: No Contact w/Intl Traveler <30 Da: No Traveled to Known Affected Are: No History of Present Illness Ms. Velazquez is a 77 year-old female with a history of transient ischemic attack followed by Dr. Reina, arthritis, asthma, atrial fibrillation, hepatitis C, hypertension, gastric ulcer, and hypothyroidism after radioactive iodine treatment for a goiter who presented to the emergency room on 12/28/17 after experiencing abrupt onset of severe dizziness while at home accompanied by chest pressure and shortness of breath. Patient was admitted for observation and medical management. Patient is seen in the CDU. She reports that she was having diarrhea and abdominal pain when she became her abruptly dizzy accompanied by chest pressure and shortness of breath. Patient states the shortness of breath and chest pressure felt similar to prior episodes of asthma exacerbation except she did not feel like she was wheezing at that time. She states that the vertigo has somewhat improved and is now only occurring when she changes the position of her head. Her symptoms were initially accompanied by nausea but this has since resolved. She reports severe headache at the onset of symptoms but states now it is located only to the right forehead and left posterior of her head and is rated 2 out of 10 on a pain scale. She states when her symptoms started, her head hurt all the way around. She reports a history of a TIA in the past and of atrial fibrillation. She saw Dr. Garcia at one point in time but has not seen him for 6 years. In the ER, she had a mild troponin I elevation. Carotid artery ultrasound shows no hemodynamically significant plaque formation. Head CT was negative for acute abnormalities. Chest x-ray showed mild basilar atelectasis and her UA was negative. She denies any recent fever or chills. She denies any recent antibiotic use. Review of Systems Except as stated in HPI: all other systems reviewed are Neg Past Family Social History Past Medical History TIA Arthritis Asthma Atrial fibrillation CVA Hepatitis C Hypertension Hypothyroidism secondary to radioactive iodine treatment of goiter Gastric ulcer Anterior and posterior pubic rami fracture and left wrist fracture June 2017 not requiring surgical repair . Past Surgical History Appendectomy Cholecystectomy Tonsillectomy and adenoidectomy Hysterectomy Cystocele repair Sinus surgery in 1988 in 1990 Resection of Graceton's Gland . Reported Medications Reported Meds & Active Scripts Active Reported Magnesium Oxide 400 Mg Tab 400 Mg PO DIRECTED Aciphex (Rabeprazole Sodium) 20 Mg Tab 20 Mg PO DAILY Diltiazem (Diltiazem HCl) 120 Mg Tab 120 Mg PO DAILY Losartan (Losartan Potassium) 50 Mg Tab 50 Mg PO BID Aspirin EC (Aspirin) 81 Mg Tabdr 81 Mg PO DAILY . Allergies: Coded Allergies: Sulfa (Sulfonamide Antibiotics) (Unverified Allergy, Severe, HIVES, ) celecoxib (Unverified Allergy, Severe, Rash, 12/28/17) naproxen (Unverified Allergy, Severe, Tachycardia, 12/28/17) amoxicillin (Unverified Allergy, Mild, Rash, 12/28/17) clavulanic acid (Unverified Allergy, Mild, Rash, 12/28/17) flunisolide (Unverified Allergy, Mild, Hallucinations, 12/28/17) hydrochlorothiazide (Unverified Allergy, Mild, Rash, 12/28/17) ibuprofen (Unverified Allergy, Mild, Tachycardia, 12/28/17) lisinopril (Unverified Allergy, Mild, Edema, 12/28/17) rofecoxib (Unverified Allergy, Mild, Tachycardia, 12/28/17) tramadol (Unverified Allergy, Mild, Hallucinations, 12/28/17) NSAIDS (Non-Steroidal Anti-Inflamma (Verified Allergy, Unknown, GI, ) metoprolol (Verified Allergy, Unknown, UNKNOWN, 12/28/17) midazolam (Verified Allergy, Unknown, 12/28/17) codeine (Unverified Adverse Reaction, Mild, NAUSEA/VOMITING, 12/28/17) Uncoded Allergies: ARTHROTEC (Allergy, Severe, Rash, 11/05/12) NASALIDE (Allergy, Unknown, 06/23/17) Family History Brother with history of colon cancer Father with history of lung cancer Mother with history of cardiovascular disease and colon cancer . Social History Tobacco: Denies Alcohol: Denies Illicit Drugs: Denies . Physical Exam Vital Signs Vital Signs Date Time Temp Pulse Resp B/P (MAP) Pulse Ox O2 Delivery O2 Flow Rate FiO2 12/29/17 00:00 60 16 147/65 (92) 97 Room Air 12/28/17 21:22 64 178/77 (110) 64 193/79 (117) 66 209/82 (124) 12/28/17 19:08 98.6 66 18 172/79 (110) 98 Physical Exam GENERAL: This is a well-nourished, well-developed patient, in no apparent distress. SKIN: No rashes. Cool and dry. HEAD: Atraumatic. Normocephalic. EYES: No scleral icterus. No injection or drainage. ENT: Nose without bleeding, purulent drainage. NECK: Trachea midline. No JVD or lymphadenopathy. CARDIOVASCULAR: Regular rate and rhythm without murmurs, gallops, or rubs. Trace lower extremity edema. RESPIRATORY: Clear to auscultation. Breath sounds equal bilaterally. No wheezes , rales, or rhonchi. GASTROINTESTINAL: Abdomen soft, non-tender, nondistended. No guarding. MUSCULOSKELETAL: Extremities without clubbing, cyanosis, or edema. No calf tenderness. NEUROLOGICAL: Awake and alert. Motor and sensory grossly within normal limits except for left lower hip flexion 4+/5, right 5/5. Normal speech. . Laboratory Laboratory Tests Test 12/28/17 21:09 12/28/17 21:14 White Blood Count 12.5 Red Blood Count 4.47 Hemoglobin 13.2 Hematocrit 39.0 Mean Corpuscular Volume 87.3 Mean Corpuscular Hemoglobin 29.5 Mean Corpuscular Hemoglobin Concent 33.8 Red Cell Distribution Width 13.8 Platelet Count 327 Mean Platelet Volume 7.3 Neutrophils (%) (Auto) 66.9 Lymphocytes (%) (Auto) 18.7 Monocytes (%) (Auto) 5.0 Eosinophils (%) (Auto) 9.0 Basophils (%) (Auto) 0.4 Neutrophils # (Auto) 8.4 Lymphocytes # (Auto) 2.3 Monocytes # (Auto) 0.6 Eosinophils # (Auto) 1.1 Basophils # (Auto) 0.0 CBC Comment DIFF FINAL Differential Comment Prothrombin Time 10.1 Prothromb Time International Ratio 1.0 Activated Partial Thromboplast Time 27.3 Blood Urea Nitrogen 19 Creatinine 0.68 Random Glucose 122 Total Protein 7.4 Albumin 3.8 Calcium Level 8.8 Magnesium Level 2.4 Alkaline Phosphatase 94 Aspartate Amino Transf (AST/SGOT) 17 Alanine Aminotransferase (ALT/SGPT) 24 Total Bilirubin 0.2 Sodium Level 134 Potassium Level 4.0 Chloride Level 100 Carbon Dioxide Level 24.6 Anion Gap 9 Estimat Glomerular Filtration Rate 83 Total Creatine Kinase 105 Creatine Kinase MB 1.8 Troponin I 0.07 Thyroid Stimulating Hormone 3rd Gen 1.270 Urine Color LIGHT-YELLOW Urine Turbidity CLEAR Urine pH 6.5 Urine Specific [place] 1.007 Urine Protein NEG Urine Glucose (UA) NEG Urine Ketones NEG Urine Occult Blood TRACE Urine Nitrite NEG Urine Bilirubin NEG Urine Urobilinogen LESS THAN 2.0 Urine Leukocyte Esterase NEG Urine RBC LESS THAN 1 Urine WBC LESS THAN 1 Urine Bacteria RARE Microscopic Urinalysis Comment CULT NOT INDICATED Result Diagram: 12/28/17210812/28/172108 Imaging Last Impressions Head CT 12/28/172017 Signed Impressions: Service Date/Time: Thursday, December 28, 2017 21:32 - CONCLUSION: 1. No acute intracranial abnormalities. Cal Ortega MD Chest X-Ray 12/28/172017 Signed Impressions: Service Date/Time: Thursday, December 28, 2017 20:24 - CONCLUSION: 1. Mild basilar atelectasis. Cal Ortega MD Carotid Artery Ultrasound 12/28/17 0000 Signed Impressions: Service Date/Time: Thursday, December 28, 2017 22:58 - CONCLUSION: Bilateral plaque formation with hemodynamic profile characteristic of less than 50%% stenoses. Eugenio Sanchez MD . Caprini VTE Risk Assessment Caprini VTE Risk Assessment: Mod/High Risk (score >= 2) Caprini Risk Assessment Model Point Value = 1 Point Value = 2 Point Value = 3 Point Value = 5 Age 41-60 Minor surgery BMI > 25 kg/m2 Swollen legs Varicose veins or History of unexplained or recurrent spontaneous Oral contraceptives or hormone replacement Sepsis (< 1 month) Serious lung disease, including pneumonia (< 1 month) Abnormal pulmonary function Acute myocardial infarction Congestive heart failure (< 1 month) History of inflammatory bowel disease Medical patient at bed rest Age 61-74 Arthroscopic surgery Major open surgery (> 45 min) Laparoscopic surgery (> 45 min) Malignancy Confined to bed (> 72 hours) Immobilizing plaster cast Central venous access Age >= 75 History of VTE Family history of VTE Factor V Leiden Prothrombin [id number] Lupus anticoagulant Anticardiolipin antibodies Elevated serum homocysteine Heparin-induced thrombocytopenia Other congenital or acquired thrombophilia Stroke (< 1 month) Elective arthroplasty Hip, pelvis, or leg fracture Acute spinal cord injury (< 1 month) Prophylaxis Regimen Total Risk Factor Score Risk Level Prophylaxis Regimen 0-1 Low Early ambulation 2 Moderate Order ONE of the following: *Sequential Compression Device (SCD) *Heparin 5000 units SQ BID 3-4 Higher Order ONE of the following medications: *Heparin 5000 units SQ TID *Enoxaparin/Lovenox 40 mg SQ daily (WT < 150 kg, CrCl > 30 mL/min) *Enoxaparin/Lovenox 30 mg SQ daily (WT < 150 kg, CrCl > 10-29 mL/min) *Enoxaparin/Lovenox 30 mg SQ BID (WT < 150 kg, CrCl > 30 mL/min) AND/OR *Sequential Compression Device (SCD) 5 or more Highest Order ONE of the following medications: *Heparin 5000 units SQ TID (Preferred with Epidurals) *Enoxaparin/Lovenox 40 mg SQ daily (WT < 150 kg, CrCl > 30 mL/min) *Enoxaparin/Lovenox 30 mg SQ daily (WT < 150 kg, CrCl > 10-29 mL/min) *Enoxaparin/Lovenox 30 mg SQ BID (WT < 150 kg, CrCl > 30 mL/min) AND *Sequential Compression Device (SCD) Assessment and Plan Problem List: (1) Vertigo ICD Code: R42 - Dizziness and giddiness Status: Acute Assessment and Plan Ms. Velazquez is a 77 year-old female with a history of transient ischemic attack followed by Dr. eRina, arthritis, asthma, atrial fibrillation, hepatitis C, hypertension, gastric ulcer, and hypothyroidism after radioactive iodine treatment for a goiter who presented to the emergency room on 12/28/17 after experiencing abrupt onset of severe dizziness while at home accompanied by chest pressure and shortness of breath. Patient was admitted for observation and medical management. Vertigo, positional vs TIA vs orthostatic hypotension -Consult neurology -appreciate assistance -MRI and MRA pending; 2D echocardiogram to assess cardiac structure and function are also pending -Hold home losartan until brain MRI is completed and ischemic CVA ruled out -Frequent neuro checks and vital signs -Trial of meclizine 25 mg p.o. every 8 hours -Continuous cardiac telemetry to monitor for cardiac arrhythmias -Carotid ultrasound shows bilateral plaque formation with hemodynamic profile characteristic of less than 50% stenosis; head CT with no acute intracranial abnormalities; UA negative; chest x-ray with mild basilar atelectasis -Consult physical therapy -Check hemoglobin A1c to rule out diabetes mellitus and check lipid profile to check for hyperlipidemia Chest pressure and shortness of breath Mild Troponin I elevation -Check serial cardiac enzymes and EKGs to rule out ACS -Consult cardiology if indicated Mild leukocytosis of undetermined significance -WBC 12.5 -Repeat CBC in a.m. and follow results DVT prophylaxis -SCDs . Discussed Condition With Dr. Martinez and patient . Sakina Amezquita Dec 29, 2017 02:54
[2017-12-29] MEDS: MECLIZINE HCL 25 MG TAB PO SCH ×2 (03:21→06:25)
[2017-12-29] MEDS ORDERED: RESP: ALBUTEROL 2.5 MG/IPRATROPIUM 0.5 MG NEB (PRN) NEB (04:00)
[2017-12-29 04:06] LABS: TROPONIN I 0.07 NG/ML (0.02-0.05)
[2017-12-29 06:06] LABS: CHOLESTEROL 150 MG/DL (120-200)
[2017-12-29 06:08] LABS: CHOLESTEROL/ HDL RATIO 2.31 RATIO; HDL CHOLESTEROL 64.8 MG/DL (40.0-60.0); LDL CHOLESTEROL 79 MG/DL (0-99); TRIGLYCERIDES 32 MG/DL (42-150)
--- NOTE | 2017-12-29 08:44 | EKG ---
Date Performed: 12/29/2017 Time Performed: 03:25:30 PTAGE: 77 years EKG: SINUS BRADYCARDIA WITH FIRST DEGREE AV BLOCK ABNORMAL ECG PREVIOUS TRACING : 12/28/2017 21.01 No significant change from previous tracing noted. DOCTOR: Aaron Braun Interpretating Date/Time 12/29/2017 08:25:31
--- NOTE | 2017-12-29 08:45 | EKG ---
Date Performed: 12/28/2017 Time Performed: 21:01:11 PTAGE: 77 years EKG: Sinus rhythm LOW QRS VOLTAGE IN PRECORDIAL LEADS POSSIBLE ANTERIOR MYOCARDIAL INFARCTION ABNORMAL ECG PREVIOUS TRACING : 08/26/2004 07.53 Compared to previous tracing, anterior infarct pattern is n ow more evident. DOCTOR: Aaron Braun Interpretating Date/Time 12/29/2017 08:32:31
[2017-12-29] MEDS ORDERED: SODIUM CHLORIDE 0.9% FLUSH 10 ML FLUSH IV FLUSH SCH (09:00)
[2017-12-29] MEDS ORDERED: PANTOPRAZOLE SOD 20 MG DELAYED RELEASE TAB PO SCH (09:00)
[2017-12-29] MEDS ORDERED: DILTIAZEM-CD 120 MG CAP ER PO SCH (09:00)
--- NOTE | 2017-12-29 09:16 | RADRPT ---
EXAM DATE/TIME: 12/29/2017 08:29 [facility] COMPARISON: MRI BRAIN W/O CONTRAST, December 29, 2017, 8:29. CT BRAIN W/O CONTRAST, December 28, 2017, 21:32. INDICATIONS : Stroke. MEDICAL HISTORY : Hypertension. SURGICAL HISTORY : Tonsillectomy. Appendectomy. Hysterectomy. ENCOUNTER: Initial ACUITY: 2 day PAIN SCORE: 0/10 LOCATION: Head Please note a normal MRA of the brain does not entirely exclude the possibility of a small aneurysm, nor the possibility of distal intracranial vessel disease. TECHNIQUE: 3D time of flight MRA was performed. Source images, multiplanar STS MIP, and 3D volume MIP reconstru ctions were reviewed. FINDINGS: There is excellent visualization of the major intracranial arteries out to the second-order branch ve ssels. There is no evidence for aneurysm, vessel truncation or stenosis, and no evidence for vascula r malformation. There are bilateral patent small posterior communicating arteries. CONCLUSION: Normal examination for a patient of this age. Baldemar Causey MD on December 29, 2017 at 9:12 Board Certified Radiologist. This report was verified electronically.
--- NOTE | 2017-12-29 09:25 | RADRPT ---
EXAM DATE/TIME: 12/29/2017 08:29 [facility] COMPARISON: No previous studies available for comparison. INDICATIONS : CVA. MEDICAL HISTORY : Hypertension. SURGICAL HISTORY : Cholecystectomy. Appendectomy. Hysterectomy. ENCOUNTER: Initial ACUITY: 2 day PAIN SCORE: 0/10 LOCATION: head TECHNIQUE: Multiplanar, multisequence MRI of the brain was performed without contrast. FINDINGS: CEREBRUM: The ventricles are normal for age. There is bilateral cortical atrophy. No evidence of midline shift , mass lesion, hemorrhage or acute infarction. No extraaxial fluid collections are seen. The pituit vidhi gland and suprasellar cistern are normal in configuration. WHITE MATTER: No significant signal abnormalities are seen in the white matter. A few scattered high signal spots a re noted in the white matter tracts bilaterally characteristic for ischemic edema on this patient. Th is is characteristic for patient's age. POSTERIOR FOSSA: The cerebellum and brainstem are intact. The 4th ventricle is midline. The cerebellopontine angle is unremarkable. The cerebellar tonsils are normal in position. DIFFUSION IMAGING: No focal areas of restricted diffusion are seen. No evidence of acute infarction. EXTRACRANIAL: The visualized portions of the orbits and paranasal sinuses are unremarkable. CONCLUSION: 1. Bilateral cortical atrophy and chronic white matter changes characteristic for patient's age. 2. No acute intracranial pathology. Baldemar Causey MD on December 29, 2017 at 9:21 Board Certified Radiologist. This report was verified electronically.
[2017-12-29 11:32] LABS: TROPONIN I 0.03 NG/ML (0.02-0.05)
--- NOTE | 2017-12-29 11:33 | HHI.PR ---
Subjective Remarks Follow up for dizziness, chest pressure, shortness of breath. The patient reports her symptoms have mostly resolved. She denies any dizziness while lying in bed and has been able to ambulate to the bedside commode without difficulty. Denies any further chest pain or shortness of breath. She states she did have significant nausea with the dizziness yesterday. She believes her symptoms were relieved after she received the meclizine. Discussed her elevated troponin. She reports a normal treadmill stress test back around [address] Ventura. She has not seen Dr. Ventura in at least 8 years. She states she used to follow with him for her afib. 10 years ago she also had an episode of suspected TIA with acute left sided weakness that resolved after a few hours. She states she was on plavix for 1.5years but has now been on just baby aspirin daily for the past 8 years. She has not had any prior similar episodes. Her last echo was also 8-10 years ago. She has no other medical complaints to report at this time. Objective Vitals Vital Signs Date Time Temp Pulse Resp B/P (MAP) Pulse Ox O2 Delivery O2 Flow Rate FiO2 12/29/17 10:40 71 18 185/78 (113) 100 Room Air 12/29/17 07:56 78 17 162/74 (103) 96 Room Air 12/29/17 04:00 65 16 149/66 (93) 96 Room Air 12/29/17 02:00 62 16 168/48 (88) 96 Room Air 12/29/17 00:00 60 16 147/65 (92) 97 Room Air 12/28/17 21:22 64 178/77 (110) 64 193/79 (117) 66 209/82 (124) 12/28/17 19:08 98.6 66 18 172/79 (110) 98 Result Diagram: 12/28/17210812/28/172108 Imaging Last Impressions Head Magnetic Resonance Angiography 12/29/17 0000 Signed Impressions: Service Date/Time: Friday, December 29, 2017 08:29 - CONCLUSION: Normal examination for a patient of this age. Baldemar Causey MD Brain MRI 12/29/17 0000 Signed Impressions: Service Date/Time: Friday, December 29, 2017 08:29 - CONCLUSION: 1. Bilateral cortical atrophy and chronic white matter changes characteristic for patient's age. 2. No acute intracranial pathology. Baldemar Causey MD Head CT 12/28/172017 Signed Impressions: Service Date/Time: Thursday, December 28, 2017 21:32 - CONCLUSION: 1. No acute intracranial abnormalities. Cal Ortega MD Chest X-Ray 12/28/172017 Signed Impressions: Service Date/Time: Thursday, December 28, 2017 20:24 - CONCLUSION: 1. Mild basilar atelectasis. Cal Ortega MD Carotid Artery Ultrasound 12/28/17 Signed Impressions: Service Date/Time: Thursday, December 28, 2017 22:58 - CONCLUSION: Bilateral plaque formation with hemodynamic profile characteristic of less than 50%% stenoses. Eugenio Sanchez MD Objective Remarks GENERAL: Well-nourished, well-developed pleasant elderly female patient in [facility]. SKIN: Warm and dry. No rash. HEENT: Normocephalic. Atraumatic.Pupils equal and round. Mucous membranes pink and moist. CARDIOVASCULAR: Regular rate and rhythm. No murmur appreciated. RESPIRATORY: No accessory muscle use. Clear to auscultation. Breath sounds equal bilaterally. GASTROINTESTINAL: Abdomen soft, non-tender, nondistended. Normoactive bowel sounds x4. MUSCULOSKELETAL: No obvious deformities. Extremities without clubbing, cyanosis , or edema. NEUROLOGICAL: Awake and alert. No obvious cranial nerve deficits. Motor grossly within normal limits. 5/5 muscle strength in bilateral upper and lower extremities. Normal speech. No facial droop/lid lag/tongue deviation. PSYCHIATRIC: Appropriate mood and affect; insight and judgment normal. Medications and IVs Current Medications Medications (Trade) Dose Ordered Sig/Ingrid Route Start Time Stop Time Status Last Admin (NS Flush) 2 ml BID IV FLUSH 12/29/17 09:00 (NS Flush) 2 ml UNSCH PRN IV FLUSH 12/28/17 23:00 (D50w (Vial) Inj) 50 ml UNSCH PRN IV PUSH 12/28/17 23:00 (Glucagon Inj) 1 mg UNSCH PRN OTHER 12/28/17 23:00 (Protonix) 20 mg DAILY PO 12/29/17 09:00 12/29/17 10:36 (Cardizem Cd) 120 mg DAILY PO 12/29/17 09:00 12/29/17 09:00 (Antivert) 25 mg Q8HR PO 12/29/17 03:00 12/29/17 06:25 (Duoneb Neb) 1 ampule Q4HR NEB PRN NEB 12/29/17 04:00 A/P Problem List: (1) Vertigo ICD Code: R42 - Dizziness and giddiness Status: Acute Assessment and Plan 77 year-old female with a history of TIA followed by Dr. Reina, arthritis, asthma, atrial fibrillation, hepatitis C, hypertension, gastric ulcer, and hypothyroidism after radioactive iodine treatment for a goiter who presented to the ED on 12/28/17 after experiencing abrupt onset of severe dizziness while at home accompanied by chest pressure and shortness of breath. Benign Paroxysmal Positional Vertigo: other possible etiologies include TIA vs orthostatic hypotension vs ACS -Head CT, Brain MRI, Head MRA images reviewed, no acute findings -Carotid U/S shows bilateral plaque formation with hemodynamic profile characteristic of less than 50% stenosis -UA negative; chest x-ray reviewed, mild basilar atelectasis -Check 2D Echocardiogram -Monitor neuro checks and vital signs -Trial of meclizine 25 mg p.o. every 8 hours -Continue patient's aspirin 81mg daily -Continuous cardiac telemetry to monitor for cardiac arrhythmias -Consult physical therapy -Check hemoglobin A1c and lipid profile -Consult neurology, appreciate assistance Elevated Troponin: with chest pressure and shortness of breath. Suspect related to above, however rule out ACS vs arrhythmia -Troponins elevated but flat at 0.07, 0.07, 0.03 -EKG reviewed, shows sinus rhythm with no acute ST elevation/depression -Ordered nuclear stress test, will consult cardiology if abnormal Mild leukocytosis of undetermined significance: possible stress reaction -WBC 12.5K -Repeat CBC in a.m DVT prophylaxis-SCDs Discharge Planning Discharge pending echo, nuclear stress test, PT eval, neurology consult. Likely discharge tomorrow if work up unremarkable and cleared by neurology. Lory Bone PA-C Dec 29, 2017 11:33
[2017-12-29] MEDS: LOSARTAN 50 MG TAB PO SCH ×2 (12:22→22:32)
[2017-12-29] MEDS: ASPIRIN EC 81 MG TABEC PO SCH (12:22)
--- NOTE | 2017-12-29 15:06 | MB ---
cc: Vicky Alexandre MD DATE OF CONSULT: 12/29/2017 REASON FOR CONSULTATION: Vertigo. HISTORY OF PRESENT ILLNESS: This is a 77-year-old woman who is a patient of my partner, Dr. Reina for TIA with a history of hepatitis C, hypertension, ulcer, hypothyroidism who comes in with severe vertigo when she bent forward. She is going to have a stress test for elevated troponins. She has a history of atrial fibrillation years ago, no longer is having that issue. The patient was having some chest pressure radiating into her shoulders with some shortness of breath as well. She states that her vertigo is somewhat resolved with meclizine, but still a little bit unsteady when she ambulates. PAST MEDICAL HISTORY: As stated. MEDICATIONS: At home, are: 1. Magnesium. 2. Aciphex. 3. Diltiazem. 4. Losartan. 5. Baby aspirin. ALLERGIES: PLEASE REFER TO EMAR, THEY ARE NUMEROUS. FAMILY HISTORY: Colon cancer in the brother. Father had lung cancer. Mother had heart disease and colon cancer. SOCIAL HISTORY: She does not smoke, drink or use any drugs. PHYSICAL EXAMINATION: VITAL SIGNS: Temperature 98.6, pulse 77, respiratory rate 18, blood pressure 169/70. NECK: Supple, no bruits. HEART: Regular. GENERAL: She is awake, alert. She is oriented. She is fluent. HEENT: Pupils are reactive. Visual mukherjee are full. No nystagmus. Face symmetrical. Tongue midline. MOTOR: There is no tremor, drift or leg lag. Cerebellar testing is normal. Toes are downgoing. DTRs are 1+. Gait is withheld. IMAGING: MRI shows bilateral atrophy and chronic white matter disease. No acute pathology. MRA: [place] was normal. Carotid ultrasound: Bilateral plaque, less than 50%. LABORATORY DATA: White count 12.5 without a shift. Coag panel was normal. Troponins 0.07, 0.07 and 0.03 respectively. Lipids: Cholesterol 150, LDL of 79, HDL of 64.8, triglycerides 32. TSH of 1.270. Urine: Unremarkable. IMPRESSION: Likely vertigo. PLAN: Recommend continuing the meclizine. If meclizine seems to stop working, options would be to change her to low-dose Diazepam p.r.n. I recommend continuing her testing for cardiac disease. Myocardial perfusion scan to be done this afternoon. Outpatient-[facility], she can go to physical therapy and have vestibular rehabilitation there. If she is stable from my perspective, she can be discharged home. Followup with Dr. Reina in 1-2 weeks. MD EDGARDO Lopez/MACY , 02:39 PM , 03:05 PM
[2017-12-29] MEDS ORDERED: REGADENOSON INJ 0.4 MG/5 ML SYR ONE (15:57)
[2017-12-29 16:08] LABS: HEMOGLOBIN A1C 5.4 % (4.3-6.0)
--- NOTE | 2017-12-29 17:31 | RADRPT ---
EXAM DATE/TIME: 12/29/2017 15:45 [facility] COMPARISON: No previous studies available for comparison. INDICATIONS : Mid chest pain with shortness of breath and dizziness for one day. Angina. Atrial fibrillation. DOSE: 25.8 mCi Tc99m Myoview at stress. 8.7 mCi Tc99m Myoview at rest. 0.4 mg Lexiscan STRESS SYMPTOMS: Chest pressure. EJECTION FRACTION: 66% MEDICAL HISTORY : Hepatitis C. Hypertension. Stroke. SURGICAL HISTORY : Tonsillectomy. Hysterectomy. Appendectomy. ENCOUNTER: Initial ACUITY: 1 day PAIN SCALE: 6/10 LOCATION: Midsternal chest TECHNIQUE: The patient underwent pharmacologic stress with infusion of prescribed dose. Continuous ECG tracing was monitored during stress. Gated SPECT imaging was performed after stress and conventional SPECT i maging was performed at rest. The examination was performed on a SPECT/CT scanner, both attenuation and non-corrected datasets were reviewed. FINDINGS: DISTRIBUTION: The maximum perfused segment at stress is in the septal wall. PERFUSION STUDY: The pattern of perfusion at stress is within normal limits. GATED STUDY: There is intact wall motion and thickening without hypokinetic or dyskinetic segments. CONCLUSION: Unremarkable myocardial perfusion examination. RISK CATEGORY: Low Baldemar Causey MD on December 29, 2017 at 17:28 Board Certified Radiologist. This report was verified electronically.
[2017-12-29] MEDS: DILTIAZEM-CD 120 MG CAP ER PO SCH (22:32)
[2017-12-30] VITALS (9 sets, daily range): BP systolic 113–151; BP diastolic 46–85; PULSE 56–70; RESP 17–20; TEMP 97.6–98.2; O2SAT 93–96
[2017-12-30] MEDS ORDERED: MECL-62 PO (07:24)
--- NOTE | 2017-12-30 07:25 | HHI.DCPOC ---
Discharge Care Plan Diagnosis: (1) Vertigo Goals to Promote Your Health * To prevent worsening of your condition and complications * To maintain your health at the optimal level Directions to Meet Your Goals Take your medications as prescribed Follow your dietary instruction Follow activity as directed Keep your appointments as scheduled Take your immunizations and boosters as scheduled If your symptoms worsen call your PCP, if no PCP go to Urgent Care Center or Emergency Room Smoking is Dangerous to Your Health. Avoid second hand smoke Call the 24-hour hour crisis hotline for domestic abuse at Lory Bone PA-C Dec 30, 2017 7:25 am
[2017-12-30] MEDS: DILTIAZEM-CD 120 MG CAP ER PO SCH ×2 (08:06→21:56)
[2017-12-30] MEDS: ASPIRIN EC 81 MG TABEC PO SCH (08:06)
[2017-12-30] MEDS: LOSARTAN 50 MG TAB PO SCH ×2 (08:06→21:56)
[2017-12-30 10:06] LABS: AUTOMATED NEUTROPHIL # 2.6 TH/MM3 (1.8-7.7); BASOPHIL % 0.8 % (0.0-2.0); EOSINOPHIL # 1.1 TH/MM3 (0-0.4); EOSINOPHIL % 18.6 % (0.0-4.0); HEMOGLOBIN 14.5 GM/DL (11.6-15.3); LYMPH % 30.4 % (9.0-44.0); LYMPHOCYTE # 1.9 TH/MM3 (1.0-4.8); MEAN CELL VOLUME 87.5 FL (80.0-100.0); MEAN CORPUSCULAR HEMOGLOBIN 29.5 PG (27.0-34.0); MEAN CORPUSCULAR HGB CONC 33.8 % (32.0-36.0); MEAN PLATELET VOLUME 7.2 FL (7.0-11.0); MONO % 7.7 % (0.0-8.0); MONOCYTE # 0.5 TH/MM3 (0-0.9); NEUT % 42.5 % (16.0-70.0); PLATELET COUNT 322 TH/MM3 (150-450); RED BLOOD COUNT 4.91 MIL/MM3 (4.00-5.30); WHITE BLOOD COUNT 6.1 TH/MM3 (4.0-11.0)
[2017-12-30 10:30] LABS: BICARBONATE 24.6 MEQ/L (21.0-32.0); CREATININE 0.61 MG/DL (0.50-1.00)
--- NOTE | 2017-12-30 10:47 | HHI.DS ---
Discharge Summary Admission Date Dec 28, 2017 at 23:04 Discharge Date: Dec 31, 2017 Admitting Diagnosis Vertigo, r/o CVA (1) Vertigo ICD Code: R42 - Dizziness and giddiness Status: Acute Procedures none Brief History - From Admission Ms. Velazquez is a 77 year-old female with a history of transient ischemic attack followed by Dr. Reina, arthritis, asthma, atrial fibrillation, hepatitis C, hypertension, gastric ulcer, and hypothyroidism after radioactive iodine treatment for a goiter who presented to the emergency room on 12/28/17 after experiencing abrupt onset of severe dizziness while at home accompanied by chest pressure and shortness of breath. Patient was admitted for observation and medical management. Patient is seen in the CDU. She reports that she was having diarrhea and abdominal pain when she became her abruptly dizzy accompanied by chest pressure and shortness of breath. Patient states the shortness of breath and chest pressure felt similar to prior episodes of asthma exacerbation except she did not feel like she was wheezing at that time. She states that the vertigo has somewhat improved and is now only occurring when she changes the position of her head. Her symptoms were initially accompanied by nausea but this has since resolved. She reports severe headache at the onset of symptoms but states now it is located only to the right forehead and left posterior of her head and is rated 2 out of 10 on a pain scale. She states when her symptoms started, her head hurt all the way around. She reports a history of a TIA in the past and of atrial fibrillation. She saw Dr. Garcia at one point in time but has not seen him for 6 years. In the ER, she had a mild troponin I elevation. Carotid artery ultrasound shows no hemodynamically significant plaque formation. Head CT was negative for acute abnormalities. Chest x-ray showed mild basilar atelectasis and her UA was negative. She denies any recent fever or chills. She denies any recent antibiotic use. CBC/BMP: 12/30/17 0850 12/30/17 0850 Significant Findings Laboratory Tests Test 12/28/17 21:09 12/28/17 21:14 12/29/17 03:25 12/29/17 05:27 White Blood Count 12.5 TH/MM3 (4.0-11.0) Eosinophils (%) (Auto) 9.0 % (0.0-4.0) Neutrophils # (Auto) 8.4 TH/MM3 (1.8-7.7) Eosinophils # (Auto) 1.1 TH/MM3 (0-0.4) Blood Urea Nitrogen 19 MG/DL (7-18) Random Glucose 122 MG/DL (74-106) Sodium Level 134 MEQ/L (136-145) Estimat Glomerular Filtration Rate 83 ML/MIN (>89) Troponin I 0.07 NG/ML (0.02-0.05) 0.07 NG/ML (0.02-0.05) Urine Occult Blood TRACE (NEG) Urine Bacteria RARE /hpf (NONE) Triglycerides Level 32 MG/DL (42-150) HDL Cholesterol 64.8 MG/DL (40.0-60.0) Test 12/29/17 10:00 12/30/17 08:50 Eosinophils (%) (Auto) 18.6 % (0.0-4.0) Eosinophils # (Auto) 1.1 TH/MM3 (0-0.4) Random Glucose 114 MG/DL (74-106) Sodium Level 135 MEQ/L (136-145) Imaging Last Impressions Myocardial Perfusion Scan Nuc Med 12/29/17 1225 Signed Impressions: Service Date/Time: Friday, December 29, 2017 15:45 - CONCLUSION: Unremarkable myocardial perfusion examination. RISK CATEGORY: Low Baldemar Causey MD Head Magnetic Resonance Angiography 12/29/17 0000 Signed Impressions: Service Date/Time: Friday, December 29, 2017 08:29 - CONCLUSION: Normal examination for a patient of this age. Baldemar Causey MD Brain MRI 12/29/17 0000 Signed Impressions: Service Date/Time: Friday, December 29, 2017 08:29 - CONCLUSION: 1. Bilateral cortical atrophy and chronic white matter changes characteristic for patient's age. 2. No acute intracranial pathology. Baldemar Causey MD Head CT 12/28/172017 Signed Impressions: Service Date/Time: Thursday, December 28, 2017 21:32 - CONCLUSION: 1. No acute intracranial abnormalities. Cal Ortega MD Chest X-Ray 12/28/172017 Signed Impressions: Service Date/Time: Thursday, December 28, 2017 20:24 - CONCLUSION: 1. Mild basilar atelectasis. Cal Ortega MD Carotid Artery Ultrasound 12/28/17 0000 Signed Impressions: Service Date/Time: Thursday, December 28, 2017 22:58 - CONCLUSION: Bilateral plaque formation with hemodynamic profile characteristic of less than 50%% stenoses. Eugenio Sanchez MD PE at Discharge GENERAL: Well-nourished, well-developed pleasant elderly female patient in [place]. SKIN: Warm and dry. No rash. HEENT: Normocephalic. Atraumatic.Pupils equal and round. Mucous membranes pink and moist. CARDIOVASCULAR: Regular rate and rhythm. No murmur appreciated. RESPIRATORY: No accessory muscle use. Clear to auscultation. Breath sounds equal bilaterally. GASTROINTESTINAL: Abdomen soft, non-tender, nondistended. Normoactive bowel sounds x4. MUSCULOSKELETAL: No obvious deformities. Extremities without clubbing, cyanosis , or edema. NEUROLOGICAL: Awake and alert. No obvious cranial nerve deficits. Motor grossly within normal limits. 5/5 muscle strength in bilateral upper and lower extremities. Normal speech. No facial droop/lid lag/tongue deviation. PSYCHIATRIC: Appropriate mood and affect; insight and judgment normal. Pt update on day of discharge Eating breakfast. No more dizziness was able to ambulate. Has a walker at home/ . No n/v/d/c. No cp, sob. Feels comfortable to go home. 2D ECHO Hospital Course 77 year-old female with a history of TIA followed by Dr. Reina, arthritis, asthma, atrial fibrillation, hepatitis C, hypertension, gastric ulcer, and hypothyroidism after radioactive iodine treatment for a goiter who presented to the ED on 12/28/17 after experiencing abrupt onset of severe dizziness while at home accompanied by chest pressure and shortness of breath. Benign Paroxysmal Positional Vertigo: other possible etiologies include TIA vs orthostatic hypotension vs ACS vs arrhythmia -Head CT, Brain MRI, Head MRA images reviewed, no acute findings -Carotid U/S shows bilateral plaque formation with hemodynamic profile characteristic of less than 50% stenosis -UA negative; chest x-ray reviewed, mild basilar atelectasis -2D Echocardiogram unremarkable with EF 50-55% -Monitor neuro checks and vital signs -Trial of meclizine 25 mg p.o. every 8 hours, patient responded well to meclizine -Continue patient's aspirin 81mg daily -Continuous cardiac telemetry to monitor for cardiac arrhythmias -Consult physical therapy, recommends outpatient vestibular rehab -Hemoglobin A1c 5.4 and lipid profile wnl -Consult neurology, appreciate assistance, cleared for dc with unremarkable work up -symptoms resolved Elevated Troponin: with chest pressure and shortness of breath. Suspect related to above, however rule out ACS vs arrhythmia -Troponins elevated but flat at 0.07, 0.07, 0.03 -EKG reviewed, shows sinus rhythm with no acute ST elevation/depression -Nuclear stress test unremarkable Mild leukocytosis of undetermined significance: possible stress reaction -WBC 12.5K -Repeat CBC shows improvement with WBC 6.1K Patient is back to her baseline, improved with meclizine. Discharged home in stable condition to follow-up with PCP and consultants as outpatient. Pt Condition on Discharge: Stable Discharge Disposition: Discharge Home Discharge Time: > 30 minutes Discharge Instructions DIET: Follow Instructions for: Heart Healthy Diet Activities you can perform: Regular-No Restrictions Follow up Referrals: Neurology - 1 Week with Vicky Alexandre MD PCP Follow-up - 1 Week with Kimberly Arroyo MD New Orders: Physical Therapy - 2-3 Days New Medications: Meclizine (Meclizine) 25 Mg Tab 25 MG PO TID PRN for DIZZINESS, #21 TAB 0 Refills Continued Medications: Aspirin DR (Aspirin EC) 81 Mg Tabdr 81 MG PO HS, TAB 0 Refills Diltiazem (Diltiazem) 120 Mg Tab 120 MG PO BID for Angina, #120 TAB 0 Refills Losartan (Losartan) 50 Mg Tab 50 MG PO BID for Blood Pressure Management, #60 TAB 0 Refills Magnesium Oxide (Magnesium Oxide) 400 Mg Tab 400 MG PO DIRECTED for Nutritional Supplement, TAB 0 Refills Rabeprazole (Aciphex) 20 Mg Tab 20 MG PO DAILY for Reflux, #30 TAB 0 Refills Netta Parikh MD Dec 30, 2017 10:47
--- NOTE | 2017-12-30 19:14 | ECHRPT ---
Indication: CVA/TIA CONCLUSIONS The left ventricular systolic function is low normal with an estimated ejection fraction in the rang e of 50- 55%. Wall thickness is normal. Normal left ventricular size. No regional wall motion abnormalities are present. The left atrial size is mildly dilated. Mild to moderate mitral valve regurgitation. Mild thickening of the mitral valve leaflets. Diffuse calcification of the aortic valve. There is trace tricuspid valve regurgitation. The estimated pulmonary arterial pressure is 35 mmHg. BP: 187 / 69 HR: 78 Rhythm: Sinus MEASUREMENTS (Male / Female) Normal Values Technical Quality:Fair 2D ECHO LV Diastolic Diameter PLAX 4.3 cm 4.2 - 5.9 / 3.9 - 5.3 cm LV Systolic Diameter PLAX 3.3 cm IVS Diastolic Thickness 0.9 cm 0.6 - 1.0 / 0.6 - 0.9 cm LVPW Diastolic Thickness 0.9 cm 0.6 - 1.0 / 0.6 - 0.9 cm LV Relative Wall Thickness 0.4 RV Internal Dim ED PLAX 3.7 cm LVOT Diameter 1.9 cm LA Systolic Diameter LX 4.2 cm 3.0 - 4.0 / 2.7 - 3.8 cm LA Volume Index 37.9 cm/m 16 - 28 cm/m M-MODE Aortic Root Diameter MM 2.4 cm LA Systolic Diameter MM 4.3 cm LA Ao Ratio MM 1.8 AV Cusp Separation MM 1.2 cm DOPPLER AV Peak Velocity 218.0 cm/s AV Peak Gradient 19.0 mmHg AV Mean Gradient 10.0 mmHg AV Velocity Time Integral 53.5 cm LVOT Peak Velocity 96.1 cm/s LVOT Peak Gradient 3.7 mmHg LVOT Velocity Time Integral 25.9 cm LVOT Cardiac Index 3080.7 cm/minm AV Area Cont Eq vti 1.4 cm AV Area Cont Eq pk 1.2 cm MV Area PHT 3.3 cm Mitral E Point Velocity 60.5 cm/s Mitral A Point Velocity 61.7 cm/s Mitral E to A Ratio 1.0 LV E' Lateral Velocity 10.5 cm/s Mitral E to LV E' Lateral Ratio 5.8 LV E' Septal Velocity 6.4 cm/s Mitral E to LV E' Septal Ratio 9.5 TR Peak Velocity 248.0 cm/s TR Peak Gradient 24.6 mmHg Right Atrial Pressure 10.0 mmHg Pulmonary Artery Systolic Pressu 34.6 mmHg Right Ventricular Systolic Press 34.6 mmHg FINDINGS LEFT VENTRICLE The left ventricular systolic function is low normal with an estimated ejection fraction in the rang e of 50- 55%. Wall thickness is normal. Normal left ventricular size. No regional wall motion abnormalities are present. RIGHT VENTRICLE Normal right ventricular size and systolic function. LEFT ATRIUM The left atrial size is mildly dilated. RIGHT ATRIUM The right atrial size is normal. ATRIAL SEPTUM Normal atrial septal thickness without atrial level shunting by limited color doppler interrogation. AORTA The aortic root and proximal ascending aorta are normal in size on limited imaging. MITRAL VALVE Mild to moderate mitral valve regurgitation. Mild thickening of the mitral valve leaflets. AORTIC VALVE Trileaflet aortic valve. Diffuse calcification of the aortic valve. TRICUSPID VALVE Structurally normal tricuspid valve. There is trace tricuspid valve regurgitation. The estimated pulmonary arterial pressure is 34.6 mmHg. PULMONARY VALVE No pulmonary valve regurgitation or stenosis. VESSELS The inferior vena cava is normal in size. PERICARDIUM No pericardial effusion. Josselyn Marion MD, FACC (Electronically Signed) Final Date:30 December 2017 19:13
[2017-12-31 03:34] VITALS: BP 126/61; PULSE 59; RESP 18; TEMP 98.2; O2SAT 96
[2017-12-31 06:52] VITALS: PULSE 59
[2017-12-31 08:32] VITALS: BP 156/71; PULSE 68; RESP 18; TEMP 97.5; O2SAT 96
[2017-12-31] MEDS: ASPIRIN EC 81 MG TABEC PO SCH (09:02)
[2017-12-31] MEDS: DILTIAZEM-CD 120 MG CAP ER PO SCH (09:02)
[2017-12-31] MEDS: LOSARTAN 50 MG TAB PO SCH (09:02)
--- NOTE | 2017-12-31 09:22 | HHI.PR ---
Subjective Remarks Follow up for vertigo. The patient is seen in her room this morning getting ready for discharge. She was discharged late last night and did not feel comfortable going home at 10pm. She denies any recurrent dizziness, nausea, chest pain, or shortness of breath. She is ambulating without difficulty. Discussed all results of tests including labs, echo, nuclear stress test. All questions answered. Objective Vitals Vital Signs Date Time Temp Pulse Resp B/P (MAP) Pulse Ox O2 Delivery O2 Flow Rate FiO2 12/31/17 08:32 97.5 68 18 156/71 (99) 96 12/31/17 06:52 59 12/31/17 03:34 98.2 59 18 126/61 (82) 96 12/30/17 23:42 98.0 60 18 142/68 (92) 94 12/30/17 23:41 59 12/30/17 20:37 98.2 65 17 132/72 (92) 96 12/30/17 17:21 97.6 63 18 145/64 (91) 94 12/30/17 12:46 97.8 63 18 113/46 (68) 94 Result Diagram: 12/30/17 0850 12/30/17 0850 Imaging Last Impressions Myocardial Perfusion Scan Nuc Med 12/29/17 1225 Signed Impressions: Service Date/Time: Friday, December 29, 2017 15:45 - CONCLUSION: Unremarkable myocardial perfusion examination. RISK CATEGORY: Low Baldemar Causey MD Head Magnetic Resonance Angiography 12/29/17 0000 Signed Impressions: Service Date/Time: Friday, December 29, 2017 08:29 - CONCLUSION: Normal examination for a patient of this age. Baldemar Causey MD Brain MRI 12/29/17 0000 Signed Impressions: Service Date/Time: Friday, December 29, 2017 08:29 - CONCLUSION: 1. Bilateral cortical atrophy and chronic white matter changes characteristic for patient's age. 2. No acute intracranial pathology. Baldemar Causey MD Head CT 12/28/172017 Signed Impressions: Service Date/Time: Thursday, December 28, 2017 21:32 - CONCLUSION: 1. No acute intracranial abnormalities. Cal Ortega MD Chest X-Ray 12/28/172017 Signed Impressions: Service Date/Time: Thursday, December 28, 2017 20:24 - CONCLUSION: 1. Mild basilar atelectasis. Cal Ortega MD Carotid Artery Ultrasound 12/28/17 0000 Signed Impressions: Service Date/Time: Thursday, December 28, 2017 22:58 - CONCLUSION: Bilateral plaque formation with hemodynamic profile characteristic of less than 50%% stenoses. Eugenio Sanchez MD Objective Remarks GENERAL: Well-nourished, well-developed pleasant elderly female patient in [facility]. SKIN: Warm and dry. No rash. HEENT: Normocephalic. Atraumatic.Pupils equal and round. Mucous membranes pink and moist. CARDIOVASCULAR: Regular rate and rhythm. No murmur appreciated. RESPIRATORY: No accessory muscle use. Clear to auscultation. Breath sounds equal bilaterally. GASTROINTESTINAL: Abdomen soft, non-tender, nondistended. Normoactive bowel sounds x4. MUSCULOSKELETAL: No obvious deformities. Extremities without clubbing, cyanosis , or edema. NEUROLOGICAL: Awake and alert. No obvious cranial nerve deficits. Motor grossly within normal limits. Normal speech. No facial droop/lid lag/tongue deviation. PSYCHIATRIC: Appropriate mood and affect; insight and judgment normal. Medications and IVs Current Medications Medications (Trade) Dose Ordered Sig/Ingrid Route Start Time Stop Time Status Last Admin (Ecotrin Ec) 81 mg DAILY PO 12/29/17 11:30 12/31/17 09:02 (Cozaar) 50 mg BID PO 12/29/17 11:30 12/31/17 09:02 (Cardizem Cd) 120 mg Q12HR PO 12/29/17 22:00 12/31/17 09:02 A/P Problem List: (1) Vertigo ICD Code: R42 - Dizziness and giddiness Status: Acute Assessment and Plan 77 year-old female with a history of TIA followed by Dr. Reina, arthritis, asthma, atrial fibrillation, hepatitis C, hypertension, gastric ulcer, and hypothyroidism after radioactive iodine treatment for a goiter who presented to the ED on 12/28/17 after experiencing abrupt onset of severe dizziness while at home accompanied by chest pressure and shortness of breath. Benign Paroxysmal Positional Vertigo: other possible etiologies include TIA vs orthostatic hypotension vs ACS vs arrhythmia -Head CT, Brain MRI, Head MRA images reviewed, no acute findings -Carotid U/S shows bilateral plaque formation with hemodynamic profile characteristic of less than 50% stenosis -UA negative; chest x-ray reviewed, mild basilar atelectasis -2D Echocardiogram unremarkable with EF 50-55% -Monitor neuro checks and vital signs -Trial of meclizine 25 mg p.o. every 8 hours, patient responded well to meclizine -Continue patient's aspirin 81mg daily -Continuous cardiac telemetry to monitor for cardiac arrhythmias -Consult physical therapy, recommends outpatient vestibular rehab -Hemoglobin A1c 5.4 and lipid profile wnl -Consult neurology, appreciate assistance, cleared for dc with unremarkable work up -symptoms resolved Elevated Troponin: with chest pressure and shortness of breath. Suspect related to above, however rule out ACS vs arrhythmia -Troponins elevated but flat at 0.07, 0.07, 0.03 -EKG reviewed, shows sinus rhythm with no acute ST elevation/depression -Nuclear stress test unremarkable Mild leukocytosis of undetermined significance: possible stress reaction -WBC 12.5K -Repeat CBC shows improvement with WBC 6.1K DVT prophylaxis-SCDs Discharge Planning See discharge summary. Lory Bone PA-C Dec 31, 2017 9:22 am
== END 2017-12-31 15:33 | disposition home or self-care (01) ==
LOC: NEPD 18:37 → NEDA 23:04 → NEDH 12-29 03:12 → UNDODISOB 12-29 11:26 → NEPHCDU 12-29 20:55
PROVIDERS: ADMIT Hospitalist; ATTEND Hospitalist
DX: H81.10 Benign paroxysmal vertigo, unspecified ear (principal); R74.8 Abnormal levels of other serum enzymes; R07.9 Chest pain, unspecified; R06.02 Shortness of breath; D72.829 Elevated white blood cell count, unspecified; R11.0 Nausea; I10 Essential (primary) hypertension; J44.9 Chronic obstructive pulmonary disease, unspecified; I44.0 Atrioventricular block, first degree; R00.1 Bradycardia, unspecified; R94.31 Abnormal electrocardiogram [ECG] [EKG]; E89.0 Postprocedural hypothyroidism; J45.909 Unspecified asthma, uncomplicated; B19.20 Unspecified viral hepatitis C without hepatic coma; M19.90 Unspecified osteoarthritis, unspecified site; Z87.11 Personal history of peptic ulcer disease; Z79.899 Other long term (current) drug therapy; Z79.82 Long term (current) use of aspirin; Z86.73 Personal history of transient ischemic attack (TIA), and cerebral infarction without residual deficits
CPT/HCPCS: 70450; 70544; 70551; 71045; 78452; 80048; 80053; 80061; 81001; 82550; 82552; 83036; 83735; 84443; 84484; 85025; 85610; 85730; 93005; 93017; 93306; 93880; 97162; 97530; 99285; A9502; G0378; G8987; G8988; J2785

== ENCOUNTER → 2018-02-08 | Outpatient (CLI) | payer MEDICARE, OTHER ==
[~2018-02-08] MED LIST changes: +MECL-62 PO; -MORP1TAB24 PO; -PERI8.6T PO
[2018-02-08 13:12] LABS: CALCIUM 8.9 MG/DL (8.5-10.1)
[2018-02-08 13:13] LABS: BICARBONATE 27.2 MEQ/L (21.0-32.0)
[2018-02-08 13:16] LABS: CREATININE 0.5 MG/DL (0.50-1.00)
== END ==
LOC: PLAB 11:01
PROVIDERS: ATTEND Family Medicine
DX: I10 Essential (primary) hypertension (principal)
CPT/HCPCS: 36415; 80048